=== PATIENT | female | born 1960 | race Caucasian/White ===

== ENCOUNTER → 2021-06-19 11:43 | Outpatient (BNVA) | payer OTHER, SELFPAY | PROVIDERS: Family Provider Nurse Practitioner Family; Visit Provider Nurse Practitioner Family | DX: M17.0 Bilateral primary osteoarthritis of knee (principal); I10 Essential (primary) hypertension; J30.89 Other allergic rhinitis; R05.3 Chronic cough; R06.02 Shortness of breath | CPT/HCPCS: 80053; 80061; 84443; 85025 ==

== ENCOUNTER → 2021-09-27 09:31 | Outpatient (BNVA) | payer OTHER, SELFPAY | PROVIDERS: Family Provider Nurse Practitioner Family; Visit Provider Nurse Practitioner Family | DX: R79.89 Other specified abnormal findings of blood chemistry (principal); I73.9 Peripheral vascular disease, unspecified; M79.89 Other specified soft tissue disorders; I10 Essential (primary) hypertension; J45.909 Unspecified asthma, uncomplicated | CPT/HCPCS: 80053 ==

== ENCOUNTER → 2022-02-12 12:46 | Outpatient (BNVA) | payer SELFPAY | PROVIDERS: Family Provider Nurse Practitioner Family; PCP Nurse Practitioner Family; Visit Provider Dermatology | DX: Z01.89 Encounter for other specified special examinations (principal) ==

== ENCOUNTER 2022-03-20 11:19 | Inpatient (IN) | payer OTHER, SELFPAY ==
[2022-03-20] VITALS (9 sets, daily range): BP systolic 145–180; BP diastolic 59–81; PULSE 86–108; RESP 15–20; TEMP 36.7–37.4; O2SAT 86–98; BMI 62.9
--- NOTE | 2022-03-20 11:59 | ED_ITS ---
Documented by User: VEERNA Santos 03/20/22 15:27 HPI - Skin/Abscess/Foreign Bdy General: Chief complaint: Skin/Abscess/Foreign Body Stated complaint: Infection on the left side of the face. Time Seen by Provider: 03/20/22 11:44 Source: patient Mode of arrival: ambulatory Limitations: no limitations History of Present Illness: Patient is a 61-year-old female presents to ED today along with family for concerns of a facial infection. Patient tells me a few days ago she noticed a pimple to her left nare that she tried to pop. She states since then she has noticed redness and swelling to the left side of her face. She was seen at urgent care and placed on Augmentin. Patient has been on this medication for about 36 hours. Family states over the past 24 hours the redness and swelling has significantly worsened. Patient is not a diabetic or immunocompromised. No history of staph/MRSA. She has not been running fevers. MD complaint: abscess/boil and other (facial cellulitis ) Onset (ago): day(s) Tetanus up to date: yes Location: face Severity: moderate Pain Consistency: constant Relieving factors: none Exacerbating factors: none Associated symptoms: Reports no associated symptoms; Deny chills, fever(s), nausea or vomiting Treatments prior to arrival: antibiotic Review of Systems Const: Denies: fever(s), chills, body aches, fatigue or malaise Eyes: Denies: change in vision, blurry vision or photophobia ENMT: Reports: other (facial swelling/redness); Denies: throat pain, odynophagia, swelling of lips/tongue, oral sores or ear or mastoid pain Card: Denies: chest pain Resp: Denies: dyspnea GI: Denies: abdominal pain, nausea or vomiting Musc: Denies: neck pain, back pain, extremity pain or joint pain Neuro: Denies: headache(s), numbness in extremities, weakness in extremities, sensory changes or dizziness [facility] ED PFSH: Medical History History of asthma Hx of essential hypertension Surgical History Hx of cholecystectomy Hx of hysterectomy Family History Father Hypertension Mother Stroke Social History Smoking and tobacco status: never smoked Second hand smoke exposure: No Smoking risk assessment/counseling performed?: No Alcohol intake: never Desire information about alcohol rehabilitation?: No Counseling given: No Desire information about substance/drug rehabilitation?: No Counseling given: No Adopted: No Caregiver/support person: No Lives independently: Yes Housing: House Number of children: 2 service: No Current occupational status: employed and retired Physical Exam Const: COMMON NORMALS: no acute distress, patient oriented x3, no limitations and alert GENERAL APPEARANCE: cooperative ORIENTATION/CONSCIOUSNESS: Yes awake, Yes oriented to person, Yes oriented to place and Yes oriented to time HENMT: COMMON NORMALS: normocephalic, atraumatic, external ears normal and TM's normal bilaterally HEAD & SCALP: normal to inspection, normocephalic and atraumatic FACE & SINUS: other FACE & SINUS IMAGES: 1. significant erythema/warmth/swelling consistent with cellulitis; no obvious abscess noted EXTERNAL EAR: Yes external ears normal TYMPANIC MEMBRANE: TM's normal bilaterally MOUTH: Normal oral and palatal mucosa present, lip normal and tongue normal THROAT: posterior oropharynx normal, tonsils normal and uvula midline Eye: GENERAL EYE: appearance normal, both eyes and all related structures Neck/C-Spine: COMMON NORMALS: full ROM, no lymphadenopathy and no meningeal signs GENERAL: No anterior neck swelling and No submandibular swelling OTHER: cellulitis extending down onto L side of neck Resp: COMMON NORMALS: normal respiratory effort and clear to auscultation bilaterally AUSCULTATION: clear to auscultation bilaterally Cardio: COMMON NORMALS: regular rhythm RATE: tachycardic (mild) RHYTHM: regular rhythm Neuro: COMMON NORMALS: patient oriented x3 SENSORIUM/ORIENTATION: Yes alert, Yes oriented to person, Yes oriented to place and Yes oriented to time MENINGEAL SIGNS: Yes no meningeal signs Course Consultations: Consultation #1: Dr. Giron-does not recommend any form of drainage as he feels fluid collection most likely more of a phlegmon; recommends IV abx Consultation #2: Dr. Cast-accepts patient Vital Signs: Vital signs: Vital Signs Temperature 98.0 F 03/26/22 08:00 Pulse Rate 96 01/24/23 12:29 Respiratory Rate 18 03/26/22 12:29 Blood Pressure 169/78 03/26/22 08:00 Pulse Oximetry 98 03/26/22 12:29 Oxygen Delivery Me thod 03/26/22 11:20 Fraction of Inspir ed Oxygen 21 03/24/22 20:32 MDM - Skin/Abscess/Foreign Bdy Medicial Decision Making Patient is a nice 61-year-old female here for a significant left-sided facial cellulitis. She has been on Augmentin for approximately 36 hours with no improvement of symptoms. Over the last 24 hours symptoms have significantly worsened. She arrived to the ED mildly tachycardic. She has a white count of 27,000. CRP is significantly elevated at 76.9. Lactate is normal. Patient will require admission for IV antibiotics. Facial CT did show a small fluid collection. This was discussed with ENT Dr. Giron who did not recommend drainage at this time. I have discussed with Dr. Cast who will accept patient. Lab Data 03/20/22 12:10 03/20/22 12:[address] 03/24/22 06:00 IMPRESSION: In comparison with prior exam on 03/20/2022 there is no significant change in size of the abscess anteriorly to the left side of the maxilla, and increased patchy edema in the overlying subcutaneous fat in the left cheek suggestive of worsening phlegmon. There is slight increase in mucosal thickening in the paranasal sinuses with new meniscus of fluid in the right maxillary sinus. Laboratory Results WBC 27.1 10^3/uL (4.0-10.0) H 03/20/22 12:10 RBC 4.40 10^6/uL (4.1-5.3) 03/20/22 12:10 Hgb 12.4 g/dL (11.5-15.3) 03/20/22 12:10 Hct 39.6 % (37.0-47.0) 03/20/22 12:10 MCV 90.0 fl (81-99) 03/20/22 12:10 MCH 28.2 pg (28.0-34.0) 03/20/22 12:10 MCHC 31.3 g/dL (30.0-36.0) 03/20/22 12:10 RDW 15.0 % (12.1-15.1) 03/20/22 12:10 Plt Count 296 10^3/cmm (130-400) 03/20/22 12:10 MPV 11.9 fL (7.4-10.4) H 03/20/22 12:10 Neut % (Auto) 81.6 % 03/20/22 12:10 Lymph % (Auto) 8.1 % 03/20/22 12:10 [place] % (Auto) 6.0 % 03/20/22 12:10 Eos % (Auto) 0.6 % 03/20/22 12:10 Baso % (Auto) 0.6 % 03/20/22 12:10 Neut # (Auto) 22.15 10^3/uL (1.8-7.7) H 03/20/22 12:10 Lymph # (Auto) 2.2 10^3/uL (0.8-4.8) 03/20/22 12:10 [place] # (Auto) 1.6 10^3/uL (0.2-0.9) H 03/20/22 12:10 Eos # (Auto) 0.2 10^3/uL (0.0-0.8) 03/20/22 12:10 Baso # (Auto) 0.2 10^3/uL (0.0-0.1) H 03/20/22 12:10 Nucleated RBC % (auto) 0 % 03/20/22 12:10 Nucleated RBCs # 0.0 /100WBC 03/20/22 12:10 Sodium 137 mmol/L (136-145) 03/20/22 12:10 Potassium 4.4 mmol/L (3.5-5.1) 03/20/22 12:10 Chloride 102 mmol/L (98-107) 03/20/22 12:10 Carbon Dioxide 25 mmol/L (22-29) 03/20/22 12:10 Anion Gap 14.4 (5-19) 03/20/22 12:10 BUN 24 mg/dL (8-23) H 03/20/22 12:10 Creatinine 1.1 mg/dL (0.5-0.9) H 03/20/22 12:10 GFR Calculation 50.2 mL/min (90-130) L 03/20/22 12:10 Glucose 142 mg/dL (65-115) H 03/20/22 12:10 Calculated Osmolality 290 mOsm/kg (285-295) 03/20/22 12:10 Lactic Acid 1.2 mmol/L (0.5-2.2) 03/20/22 12:10 Calcium 9.8 mg/dL (8.5-10.5) 03/20/22 12:10 Total Bilirubin 0.5 mg/dL (0.15-1.2) 03/20/22 12:10 AST 23 U/L (0-32) 03/20/22 12:10 ALT 64 U/L (0-33) H 03/20/22 12:10 Alkaline Phosphatase 132 U/L (35-105) H 03/20/22 12:10 C-Reactive Protein 76.9 mg/L (0.0-4.9) H 03/20/22 12:10 Total Protein 7.0 g/dL (6.6-8.7) 03/20/22 12:10 Albumin 3.6 g/dL (3.5-5.2) 03/20/22 12:10 Globulin 3.4 g/dL (1.3-4.6) 03/20/22 12:10 Procalcitonin 0.06 ng/mL (0-0.5) 03/20/22 12:10 Discharge Plan Discharge Patient Disposition: Admitted As Inpatient Admit Provider: Magalie Cast Clinical Impression: Cellulitis of face Condition: Stable Coding Level of Care Code ED [employer] for Chg Fwd Exam Detailed Documented by User: Sukumar Arevalo MD 03/31/22 00:14 HPI - Skin/Abscess/Foreign Bdy General: Chief complaint: Skin/Abscess/Foreign Body Stated complaint: Infection on the left side of the face. Time Seen by Provider: 03/20/22 11:44 PFSH ED PFSH: Medical History History of asthma Hx of essential hypertension Surgical History Hx of cholecystectomy Hx of hysterectomy Family History Father Hypertension Mother Stroke Social History Smoking and tobacco status: never smoked Second hand smoke exposure: No Smoking risk assessment/counseling performed?: No Alcohol intake: never Desire information about alcohol rehabilitation?: No Counseling given: No Desire information about substance/drug rehabilitation?: No Counseling given: No Adopted: No Caregiver/support person: No Lives independently: Yes Housing: House Number of children: 2 service: No Current occupational status: employed and retired Physical Exam HENMT: FACE & SINUS IMAGES: 1. significant erythema/warmth/swelling consistent with cellulitis; no obvious abscess noted Course Vital Signs: Vital signs: Vital Signs Temperature 98.0 F 03/26/22 08:00 Pulse Rate 96 03/26/22 12:29 Respiratory Rate 18 03/26/22 12:29 Blood Pressure 169/78 03/26/22 08:00 Pulse Oximetry 98 03/26/22 12:29 Oxygen Delivery Me thod 03/26/22 11:20 Fraction of Inspir ed Oxygen 03/24/22 20:32 MDM - Skin/Abscess/Foreign Bdy Medicial Decision Making Patient is a nice 61-year-old female here for a significant left-sided facial cellulitis. She has been on Augmentin for approximately 36 hours with no improvement of symptoms. Over the last 24 hours symptoms have significantly worsened. She arrived to the ED mildly tachycardic. She has a white count of 27,000. CRP is significantly elevated at 76.9. Lactate is normal. Patient will require admission for IV antibiotics. Facial CT did show a small fluid collection. This was discussed with ENT Dr. Giron who did not recommend drainage at this time. I have discussed with Dr. Cast who will accept patient. I discussed this case with VERENA Santos. I reviewed documentation, labs, imaging. Sukumar Arevalo MD Emergency Medicine Lab Data 03/20/22 12:10 03/20/22 12:[address] 03/24/22 06:00
--- NOTE | 2022-03-20 12:20 | CTR_ITS ---
PROCEDURE INFORMATION: Exam: CT Maxillofacial With Contrast Exam date and time: 03/20/2022 1:20 PM Age: 61 years old Clinical indication: Other: Swelling; Additional info: L facial swelling/cellulitis PT states it started as a pimple. TECHNIQUE: Imaging protocol: Computed tomography of the face with contrast. Radiation optimization: All CT scans at this facility use at least one of these dose optimization techniques: automated exposure control; mA and/or kV adjustment per patient size (includes targeted exams where dose is matched to clinical indication); or iterative reconstruction. Contrast material: OMNI 350; Contrast volume: 100 ml; Contrast route: INTRAVENOUS (IV); COMPARISON: No relevant prior studies available. RADIATION DOSE METRICS: Total DLP (mGy-cm): 611.86 FINDINGS: Orbital cavities: Orbits are normal. Globes are unremarkable. Bones/joints: No acute fracture. Paranasal sinuses: Small air-fluid level is seen in each maxillary sinus with mucous membrane thickening seen in ethmoidal air cells bilaterally. Soft tissues: There is mild soft tissue swelling induration involving the left cheek. Just anterior to the maxilla is a fluid collection measuring 33 x [address]/CT facial bones w con [id number] IMPRESSION: 1. Left cheek soft tissue induration inflammation with a fluid collection seen just anterior to the maxilla on the left. 2. Sinus disease.
[2022-03-20 12:28] LABS: Basophils # 0.2 10^3/uL (0.0-0.1); Basophils % 0.6 %; Eosinophils # 0.2 10^3/uL (0.0-0.8); Eosinophils % 0.6 %; Hematocrit 39.6 % (37.0-47.0); Hemoglobin 12.4 g/dL (11.5-15.3); Lymphocytes # 2.2 10^3/uL (0.8-4.8); Lymphocytes % 8.1 %; Mean Corpuscular HGB Conc 31.3 g/dL (30.0-36.0); Mean Corpuscular Hemoglobin 28.2 pg (28.0-34.0); Mean Platelet Volume 11.9 fL (7.4-10.4); Monocytes # 1.6 10^3/uL (0.2-0.9); Neutrophils # 22.15 10^3/uL (1.8-7.7); Neutrophils % 81.6 %; Nucleated Red Blood Cells % 0 %; Platelet Count 296 10^3/cmm (130-400); White Blood Count 27.1 10^3/uL (4.0-10.0)
[2022-03-20 12:45] LABS: Alanine Aminotransferase 64 U/L (0-33); Albumin Level 3.6 g/dL (3.5-5.2); Alkaline Phosphatase 132 U/L (35-105); Anion Gap 14.4 (5-19); Aspartate Amino Transferase 23 U/L (0-32); Blood Urea Nitrogen 24 mg/dL (8-23); C Reactive Protein 76.9 mg/L (0.0-4.9); Calcium 9.8 mg/dL (8.5-10.5); Carbon Dioxide 25 mmol/L (22-29); Chloride 102 mmol/L (98-107); Globulin 3.4 g/dL (1.3-4.6); Glomerular Filtration Rate 50.2 mL/min (90-130); Glucose 142 mg/dL (65-115); Osmolality Calculated 290 mOsm/kg (285-295); Potassium 4.4 mmol/L (3.5-5.1); Sodium 137 mmol/L (136-145); Total Bilirubin 0.5 mg/dL (0.15-1.2)
[2022-03-20] MEDS: vancomycin 1,000 MG in sodium chloride 0.9% 250 ML 250 MG IV (12:49)
[2022-03-20 12:51] LABS: Lactic Sepsis W/Reflex 1.2 mmol/L (0.5-2.2)
[2022-03-20] MEDS: iohexol 350 mg/mL 500 mL Btl (per mL) IV (13:28)
[2022-03-20] MEDS: ondansetron 2 mg/ML SDV 2 mL 4 MG IVP (14:48)
[2022-03-20] MEDS: fentaNYL 50 mcg/mL INJ 2mL IVP (14:48)
[2022-03-20] MEDS: piperacillin-tazobactam 3.375 GM in sodium chloride 0.9% (plus) 50 ML IV ×2 (15:17→20:48)
--- NOTE | 2022-03-20 15:35 | PM.HP ---
Providers/Chief Complaint Primary Care Provider: QUIANA Aquino Chief Complaint: Infection on the left side of the face. History of Present Illness Rosa Espino is a 61 year old female with past medical history of asthma and hypertension, iron deficiency anemia presented to the hospital today with complaint of swelling on her face. She says a few days ago there was a pimple close to her left nose that she tried to squeeze. After that she noticed redness and swelling to the left side of her face which is gotten worse. She went to get evaluated at urgent care and was given Augmentin and clindamycin. He has taken a few doses of that however due to worsening swelling she decided to come to the hospital. Patient does not have diabetes and is not immunocompromise. Has not had a history of any staph or MRSA infections. Has been afebrile at home. Recently was treated for bronchitis with oral steroids and there after the pimple showed up which she squeezed and then ended up with facial swelling. She does have a white count of 27,000 today. She is on budesonide formoterol inhaler at home. At this time denies any chest pain, shortness of breath, abdominal pain, nausea, vomiting, diarrhea, no Headache ED course: CRP elevated, WBC 27,000, creatinine 1.1. Facial CT was done which shows a 33 mm x 10 mm possible fluid collection by left maxillary area. Case was discussed with ENT surgeon Dr. Chopra over the phone who stated to manage conservatively with IV antibiotics and no surgical intervention is needed at this time. Patient was given a dose of IV vancomycin in the ER. Zosyn has also been added. Patient will be admitted at this time for IV antibiotics. Medications/Allergies Home Medications Medication Instructions Recorded Confirmed Last Taken Type melatonin 10 mg capsule 40 mg PO DAILY 11/23/20 03/20/22 03/19/22 History Saccharomyces boulardii 250 mg 250 mg PO BID 06/19/21 03/20/22 03/19/22 History capsule (Daily Probiotic (S. boulardii)) ascorbic acid (vitamin C) 1,000 mg 500 mg PO DAILY 06/19/21 03/20/22 03/19/22 History tablet coenzyme Q10 200 mg capsule (Co 200 mg PO DAILY 06/19/21 03/20/22 03/19/22 History Q-10) cyanocobalamin (vitamin B-12) 500 500 mcg PO DAILY 06/19/21 03/20/22 03/19/22 History mcg tablet (Vitamin B-12) ferrous sulfate 27 mg iron tablet 27 mg PO DAILY 06/19/21 03/20/22 03/19/22 History glucosamine sulfate 500 mg tablet 500 mg PO DAILY 06/19/21 03/20/22 03/19/22 History (Glucosamine) omega 4-qeo-mng-fish oil 60 mg-90 1 cap PO DAILY 06/19/21 03/20/22 03/19/22 History mg-500 mg capsule (Fish Oil) albuterol sulfate 90 mcg/actuation 2 puff inhalation QID PRN 01/01/22 03/20/22 03/20/22 Rx aerosol inhaler (ProAir HFA) shortness of breath or wheezing #6.7 grams montelukast 10 mg tablet 10 mg PO DAILY #30 tabs 01/01/22 03/20/22 03/19/22 Rx olmesartan 40 mg tablet 40 mg PO DAILY #30 tabs 01/01/22 03/20/22 03/19/22 Rx triamterene 37.5 1 tab PO DAILY #30 tabs 01/01/22 03/20/22 03/19/22 Rx mg-hydrochlorothiazide 25 mg tablet budesonide-formoterol HFA 160 2 puff inhalation BID #10.2 grams 01/02/22 03/20/22 03/19/22 Rx mcg-4.5 mcg/actuation aerosol inhaler (Symbicort) amoxicillin 875 mg-potassium 1 tab PO BID 03/20/22 03/20/22 03/19/22 History clavulanate 125 mg tablet benzonatate 100 mg capsule 100 mg PO TID 03/20/22 03/20/22 03/19/22 History clindamycin HCl 300 mg capsule 300 mg PO TID #30 caps 03/20/22 03/20/22 Unknown Rx latanoprost 0.005 % eye drops 1 drp ophthalmic (eye) BEDTIME 03/20/22 03/20/22 03/19/22 History triamcinolone acetonide 0.1 % 1 applic topical BID 03/20/22 03/20/22 03/19/22 History topical cream zinc acetate 50 mg (zinc) capsule 50 mg PO DAILY 03/20/22 03/20/22 03/19/22 History Allergies Allergy/AdvReac Type Severity Reaction Status Date / Time codeine Allergy ADR-Nausea Verified 03/20/22 15:43 morphine Allergy ADR-Nausea Verified 03/20/22 15:43 PFSH Acute PFSH: Medical History History of asthma Hx of essential hypertension Surgical History Hx of cholecystectomy Hx of hysterectomy Family History Father Hypertension Mother Stroke Social History Smoking and tobacco status: never smoked Second hand smoke exposure: No Smoking risk assessment/counseling performed?: No Alcohol intake: never Desire information about alcohol rehabilitation?: No Counseling given: No Desire information about substance/drug rehabilitation?: No Counseling given: No Adopted: No Caregiver/support person: No Lives independently: Yes Housing: House Number of children: 2 service: No Current occupational status: employed and retired Vitals/I&O/Wt Last Vital Signs Temp 98.0 F 03/20/22 14:11 Pulse 86 03/20/22 15:00 Resp 19 H 03/20/22 15:00 BP 149/59 03/20/22 15:00 Pulse Ox 86 L 03/20/22 15:00 O2 Del Method 03/20/22 14:11 03/20/22 03/20/22 03/20/22 06:59 14:59 22:59 Intake Total 250 / 250 Balance 250 / 250 Weight last 48 hrs Weight 166.468 kg Physical Exam Narrative: General: Alert oriented x3, patient seen sitting up in bed appearing comfortable at this time no acute respiratory distress. HEENT: Normocephalic, atraumatic, EOMI, Cardio: Regular rate rhythm, normal S1-S2 no gross murmurs Respiratory: Clear to auscultation bilaterally no wheezes no rhonchi GI: Abdomen soft, nontender, nondistended, bowel sounds + Extremities: No edema, visible skin intact. Data 03/20/22 12:10 03/20/22 12:10 Micro: Microbiology 03/20/22 12:31 Blood Culture - Preliminary Blood SPECIMEN COLLECTED 03/20/22 12:30 Blood Culture - Preliminary Blood SPECIMEN COLLECTED A&P Assessment and plan (1) Cellulitis of face: (2) KENNY (acute kidney injury): (3) Hypertension: (4) Asthma: (5) Abscess: Plan #Cellulitis of left side of face with underlying fluid collection small abscess #Hypertension #History of asthma #KENNY ? Continue on vancomycin and Zosyn at this time ? Continue IV fluids normal saline 125 cc/h ? DuoNeb every 4 hour as needed ? Continue home medication benzonatate for cough, Singulair, olmesartan. -Leukocytosis and KENNY most likely secondary to current infection. Hopefully should improve with IV fluids. ? Check blood cultures ? If there is no improvement within 48 hours of IV antibiotics will discuss with surgery for possible drainage of fluid collection - Tylenol 1000 mg Q8H for pain PRn Full code DVT prophylaxis: Heparin SQ twice daily Attestations Medical Necessity Statement*: Will cross greater than 2 midnight stay for management of facial cellulitis underlying abscess with IV antibiotics at this time. Coding Level of Care Code Acute Code for [facility] Diagnoses Cellulitis of face L03.211 KENNY (acute kidney injury) N17.9 Hypertension I10 Asthma J45.909 Abscess L02.91
[2022-03-20 16:29] LABS: Procalcitonin 0.06 ng/mL (0-0.5)
[2022-03-20] MEDS: sodium chloride 0.9% 1,000 ML 125 ML IV (16:35)
[2022-03-20] MEDS: heparin 5,000 unit/mL INJ 1 mL 5000 UNIT SUBCUT (16:36)
[2022-03-20] MEDS: acetaminophen 325 mg Tablet 650 MG PO (16:39)
[2022-03-20] MEDS: fentaNYL 50 mcg/mL INJ 2mL 25 MCG IVP (18:45)
--- NOTE | 2022-03-20 19:52 | PC.NURSE ---
ADMIT NOTE Pt received to room from ER at 1930. Is alert and oriented. Family with pt. Has redness/swelling to left side of face. Is tender to touch. Says started with a zit in her left nare that she popped 3 days ago. Started with swelling & redness and was treated as OP without response. Received IV antibiotics in the ER. IV fluids started at 125ml/hr and waiting for pharmacy to verify the SoluMedrol so can be given. Pt instructed to call for any difficulty with swallowing or breathing. Does say she has had a cold with productive cough. History of COPD. VS done and oriented to room. Call light in reach. RN to complete admission assessment
[2022-03-20] MEDS: benzonatate 100 mg Capsule PO (20:47)
[2022-03-20] MEDS: latanoprost 0.005% Op Soln 2.5 mL Btl 1 DROP EYE-BOTH (20:48)
[2022-03-20] MEDS: ipratropium-albuterol 3 mL Neb INHALATION (22:27)
[2022-03-21] VITALS (16 sets, daily range): BP systolic 116–173; BP diastolic 62–85; PULSE 87–110; RESP 16–23; TEMP 36.5–36.9; O2SAT 91–99
[2022-03-21] MEDS: acetaminophen 500 mg Tablet 1000 MG PO ×2 (00:25→19:51)
[2022-03-21] MEDS: sodium chloride 0.9% 1,000 ML 125 ML IV ×3 (03:30→23:52)
[2022-03-21] MEDS: heparin 5,000 unit/mL INJ 1 mL 5000 UNIT SUBCUT ×2 (04:16→17:14)
[2022-03-21] MEDS: piperacillin-tazobactam 3.375 GM in sodium chloride 0.9% (plus) 50 ML IV ×3 (04:17→20:26)
[2022-03-21 04:51] LABS: Basophils # 0.1 10^3/uL (0.0-0.1); Basophils % 0.4 %; Hematocrit 39.6 % (37.0-47.0); Hemoglobin 12.1 g/dL (11.5-15.3); Lymphocytes % 3.7 %; Mean Corpuscular HGB Conc 30.6 g/dL (30.0-36.0); Mean Corpuscular Hemoglobin 27.9 pg (28.0-34.0); Mean Corpuscular Volume 91.2 fl (81-99); Monocytes # 0.5 10^3/uL (0.2-0.9); Monocytes % 1.6 %; Neutrophils # 25.18 10^3/uL (1.8-7.7); Neutrophils % 91.5 %; Nucleated Red Blood Cells % 0 %; Platelet Count 285 10^3/cmm (130-400); Red Blood Count 4.34 10^6/uL (4.1-5.3); Red Cell Distribution Width 14.8 % (12.1-15.1); White Blood Count 27.5 10^3/uL (4.0-10.0)
[2022-03-21] MEDS: vancomycin 1,500 MG/300 ML PIGGYBACK 200 MG IV (05:19)
[2022-03-21 05:29] LABS: Anion Gap 15.2 (5-19); Blood Urea Nitrogen 21 mg/dL (8-23); Calcium 9.5 mg/dL (8.5-10.5); Carbon Dioxide 24 mmol/L (22-29); Chloride 104 mmol/L (98-107); Glomerular Filtration Rate 50.2 mL/min (90-130); Glucose 179 mg/dL (65-115); Osmolality Calculated 293 mOsm/kg (285-295); Potassium 5.2 mmol/L (3.5-5.1); Sodium 138 mmol/L (136-145)
--- NOTE | 2022-03-21 07:44 | PM.PN ---
Subjective Subjective: CRP 111 WBC 27 Patient reportedly feeling better, swelling decreased a bit Breathing better as well Vitals/I&O/Wt Last Vital Signs Temp 97.9 F 03/21/22 04:22 Pulse 94 03/21/22 04:22 Resp 21 H 03/21/22 04:22 BP 147/77 03/21/22 04:22 Pulse Ox 94 03/21/22 04:22 O2 Del Method 03/21/22 03:37 03/20/22 03/21/22 03/21/22 22:59 06:59 14:59 Intake Total 300 / 300 1290 / 1590 Output Total Balance 299 / 299 1290 / 1589 Weight last 48 hrs Weight 166.468 kg Physical Exam Narrative: General: Alert oriented x3, patient seen sitting up in bed appearing comfortable at this time no acute respiratory distress. HEENT: Normocephalic, atraumatic, EOMI, Cardio: Regular rate rhythm, normal S1-S2 no gross murmurs Respiratory: Clear to auscultation bilaterally no wheezes no rhonchi GI: Abdomen soft, nontender, nondistended, bowel sounds + Extremities: No edema, visible skin intact. Data 03/21/22 04:12 03/21/22 04:12 Micro: Microbiology 03/20/22 12:31 Blood Culture - Preliminary Blood SPECIMEN COLLECTED 03/20/22 12:30 Blood Culture - Preliminary Blood SPECIMEN COLLECTED A&P Assessment and plan (1) Cellulitis of face: (2) KENNY (acute kidney injury): (3) Hypertension: (4) Asthma: (5) Abscess: Plan #Cellulitis of left side of face with underlying fluid collection small abscess #Hypertension #History of asthma #KENNY #COPD exacerbation ? Continue on vancomycin and Zosyn at this time ? Continue IV fluids normal saline 125 cc/h ? DuoNeb every 4 hour as needed ? Continue home medication benzonatate for cough, Singulair, olmesartan. -Leukocytosis and KENNY most likely secondary to current infection. Hopefully should improve with IV fluids. ? Check blood cultures ? Continue inpatient IV Antibiotics for atleast 4-5 days. - Tylenol 1000 mg Q8H for pain PRn - Potassium 5.2 today. Will order kayexalate x1 - Doc-senna 1 bid - Discussed with ID. Patient will need 14 days IV abx total, most likely vancomycin. Will decide on coverage in few days. - Check MRSA nares - Continue solumedrol 40 q12 hr Full code DVT prophylaxis: Heparin SQ twice daily Attestations Medical Necessity Statement*: Will cross greater than 2 midnight stay for management of facial cellulitis underlying abscess with IV antibiotics at this time. Coding Level of Care Code Acute Code for g Fwd Diagnoses Cellulitis of face L03.211 KENNY (acute kidney injury) N17.9 Hypertension I10 Asthma J45.909 Abscess L02.91
[2022-03-21] MEDS: ipratropium-albuterol 3 mL Neb INHALATION ×4 (08:31→21:09)
[2022-03-21] MEDS: benzonatate 100 mg Capsule PO ×3 (08:51→20:26)
[2022-03-21] MEDS: montelukast sodium 10 mg Tablet PO (08:51)
--- NOTE | 2022-03-21 10:53 | PC.CHAP ---
Pastoral Care Encounter/Spiritual Assessment Type of Contact [] Declined instructor ballroom dancing visit [] Patient/Family/Request visit [] Outpatient visit [] Follow-up visit [] Physician referral [] Code/Alert [x] Routine visit [] Staff referral [] Actively dying [] Patient sleeping [] Family support [] [] Out of room [] Palliative care [] [x] Receiving care in room [] Pre-surgical visit [] Trauma [] Long length of stay [] ICU visit [] Other: Relational/Emotional Strength [x] Patient feels connected with others/family/visitors/staff [] Distress [] Loneliness/isolation [] Abandonment Spirituality of Patient [x] Person of Deandra [] Attends Jew of their Deandra [x] Believes in Prayer [] Reads Bible or Pentecostalism materials [] There are Spiritual issues to be addressed Ware[employer] Interventions [x] Prayer [x] Active listening [x] Non-anxious presence [x] Spiritual/emotional support [] Crisis/trauma care [x] Spiritual counseling [] Bereavement support [] Provided bereavement packet [] Provided Bible/devotional materials [] Provided toy/stuffed animal, coloring book to patient or family member [] Provided Communion [] Anointing/[place] [] Salvation [x] Completed spiritual assessment [] Other: Impact on Illness or Injury [] Angry [] Fearful [] Anxious [] Often cries [] Exhaustion [] Unable to work [] Unable to attend cheondoism [] Unable to walk/stand [] Unable to read [] Unable to drive [] Unable to eat/drink [] Unable to sleep [] Unable to be with family [] Patient intubated [] Other: Summary absee zit feeling better +1 has a good attitude going home Time spent with patient 10 mins
[2022-03-21] MEDS: sodium polystyrene sulfonate 15 gm/60 mL Btl PO (13:13)
[2022-03-21] MEDS: sennosides-docusate Tablet 1 TAB PO (17:14)
[2022-03-21] MEDS: losartan 50 mg Tablet PO (20:23)
[2022-03-21] MEDS: latanoprost 0.005% Op Soln 2.5 mL Btl 1 DROP EYE-BOTH (20:26)
[2022-03-22] VITALS (15 sets, daily range): BP systolic 136–198; BP diastolic 68–93; PULSE 82–105; RESP 16–20; TEMP 36.4–37; O2SAT 93–98
[2022-03-22] MEDS: piperacillin-tazobactam 3.375 GM in sodium chloride 0.9% (plus) 50 ML IV ×3 (04:11→21:53)
[2022-03-22] MEDS: heparin 5,000 unit/mL INJ 1 mL 5000 UNIT SUBCUT ×2 (04:11→16:52)
[2022-03-22 05:58] LABS: Basophils # 0.1 10^3/uL (0.0-0.1); Basophils % 0.3 %; Hematocrit 38.5 % (37.0-47.0); Lymphocytes # 1.4 10^3/uL (0.8-4.8); Lymphocytes % 4.4 %; Mean Corpuscular HGB Conc 31.2 g/dL (30.0-36.0); Mean Corpuscular Hemoglobin 28.6 pg (28.0-34.0); Mean Corpuscular Volume 91.7 fl (81-99); Mean Platelet Volume 12.1 fL (7.4-10.4); Monocytes # 1.1 10^3/uL (0.2-0.9); Monocytes % 3.5 %; Neutrophils # 27.67 10^3/uL (1.8-7.7); Neutrophils % 88.8 %; Nucleated Red Blood Cells % 0 %; Platelet Count 290 10^3/cmm (130-400); Red Cell Distribution Width 15.2 % (12.1-15.1)
[2022-03-22 06:02] LABS: White Blood Count 31.2 10^3/uL (4.0-10.0)
[2022-03-22] MEDS: vancomycin 1,500 MG/300 ML PIGGYBACK 200 MG IV (06:05)
[2022-03-22 06:18] LABS: C Reactive Protein 86.6 mg/L (0.0-4.9)
[2022-03-22 06:22] LABS: Anion Gap 15.8 (5-19); Blood Urea Nitrogen 24 mg/dL (8-23); Calcium 8.8 mg/dL (8.5-10.5); Carbon Dioxide 22 mmol/L (22-29); Chloride 104 mmol/L (98-107); Glucose 152 mg/dL (65-115); Osmolality Calculated 291 mOsm/kg (285-295); Potassium 4.8 mmol/L (3.5-5.1); Sodium 137 mmol/L (136-145)
[2022-03-22] MEDS: sodium chloride 0.9% 1,000 ML 125 ML IV ×2 (07:34→16:52)
[2022-03-22] MEDS: ipratropium-albuterol 3 mL Neb INHALATION ×4 (08:11→19:03)
[2022-03-22] MEDS: montelukast sodium 10 mg Tablet PO (09:44)
[2022-03-22] MEDS: benzonatate 100 mg Capsule PO ×3 (09:44→21:52)
[2022-03-22] MEDS: TRIAMTERENE HYDROCHLOROTHIAZID 1 EACH PO (11:23)
--- NOTE | 2022-03-22 17:36 | P.PN_ITS ---
Subjective Subjective: Seen this morning. No acute events overnight. Facial swelling has decreased. Has not completely resolved yet however. Vitals/I&O/Wt Last Vital Signs Temp 98.1 F 03/22/22 12:00 Pulse 91 03/22/22 15:28 Resp 18 03/22/22 15:24 BP 136/68 03/22/22 12:00 Pulse Ox 94 03/22/22 15:24 O2 Del Method 03/22/22 15:24 03/22/22 03/22/22 03/22/22 06:59 14:59 22:59 Intake Total 300 / 3960 2552.5 / 2552.5 1000 / 3552.5 Balance 300 / 3960 2552.5 / 2552.5 1000 / 3552.5 Physical Exam Narrative: General: Alert oriented x3, patient seen sitting up in bed appearing comfortable at this time no acute respiratory distress. HEENT: Normocephalic, atraumatic, EOMI, facial swelling has decreased significantly however not resolved yet. Cardio: Regular rate rhythm, normal S1-S2 no gross murmurs Respiratory: Clear to auscultation bilaterally no wheezes no rhonchi GI: Abdomen soft, nontender, nondistended, bowel sounds + Extremities: No edema, visible skin intact. Data 03/22/22 05:19 03/22/22 05:19 Micro: Microbiology 03/21/22 13:20 MRSA Culture - Final Nose 03/20/22 12:31 Blood Culture - Preliminary Blood NEGATIVE TO DATE 03/20/22 12:30 Blood Culture - Preliminary Blood NEGATIVE TO DATE A&P Assessment and plan (1) Cellulitis of face: (2) KENNY (acute kidney injury): (3) Hypertension: (4) Asthma: (5) Abscess: Plan #Cellulitis of left side of face with underlying fluid collection small abscess #Hypertension #History of asthma #KENNY #COPD exacerbation ? Continue on vancomycin and Zosyn at this time ? Continue IV fluids normal saline 125 cc/h ? DuoNeb every 4 hour as needed ? Continue home medication benzonatate for cough, Singulair, olmesartan. -Leukocytosis and KENNY most likely secondary to current infection. Hopefully should improve with IV fluids. ? Check blood cultures ? Continue inpatient IV Antibiotics for atleast 4-5 days. - Tylenol 1000 mg Q8H for pain PRn - Potassium 5.2 today. Will order kayexalate x1 - Doc-senna 1 bid - Discussed with ID. Patient will need 14 days IV abx total, most likely vancomycin. Will decide on coverage in few days. - Check MRSA nares -Cut down Solu-Medrol to 40 daily. Full code DVT prophylaxis: Heparin SQ twice daily Attestations Medical Necessity Statement*: Will cross greater than 2 midnight stay for management of facial cellulitis underlying abscess with IV antibiotics at this time. Coding Level of Care Code Acute Code for [facility] Diagnoses Cellulitis of face L03.211 KENNY (acute kidney injury) N17.9 Hypertension I10 Asthma J45.909 Abscess L02.91
[2022-03-22] MEDS: losartan 50 mg Tablet PO (21:52)
[2022-03-22] MEDS: latanoprost 0.005% Op Soln 2.5 mL Btl 1 DROP EYE-BOTH (21:52)
[2022-03-23] VITALS (15 sets, daily range): BP systolic 125–188; BP diastolic 75–96; PULSE 84–101; RESP 16–23; TEMP 36.4–37; O2SAT 93–98
[2022-03-23] MEDS: sodium chloride 0.9% 1,000 ML 125 ML IV ×3 (00:58→16:52)
[2022-03-23] MEDS: acetaminophen 500 mg Tablet 1000 MG PO ×2 (00:58→23:31)
[2022-03-23] MEDS: heparin 5,000 unit/mL INJ 1 mL 5000 UNIT SUBCUT ×2 (05:08→16:52)
[2022-03-23] MEDS: piperacillin-tazobactam 3.375 GM in sodium chloride 0.9% (plus) 50 ML IV ×3 (05:11→21:30)
[2022-03-23 05:29] LABS: Basophils # 0.1 10^3/uL (0.0-0.1); Basophils % 0.3 %; Eosinophils % 0.1 %; Hematocrit 38.9 % (37.0-47.0); Hemoglobin 11.8 g/dL (11.5-15.3); Lymphocytes # 3.1 10^3/uL (0.8-4.8); Lymphocytes % 11.3 %; Mean Corpuscular HGB Conc 30.3 g/dL (30.0-36.0); Mean Corpuscular Hemoglobin 28.4 pg (28.0-34.0); Mean Corpuscular Volume 93.5 fl (81-99); Mean Platelet Volume 11.7 fL (7.4-10.4); Monocytes # 1.3 10^3/uL (0.2-0.9); Monocytes % 4.6 %; Neutrophils # 22.29 10^3/uL (1.8-7.7); Neutrophils % 80.7 %; Nucleated Red Blood Cells % 0 %; Platelet Count 325 10^3/cmm (130-400); Red Blood Count 4.16 10^6/uL (4.1-5.3); Red Cell Distribution Width 15.5 % (12.1-15.1); White Blood Count 27.6 10^3/uL (4.0-10.0)
[2022-03-23] MEDS: ipratropium-albuterol 3 mL Neb INHALATION ×4 (08:20→21:06)
[2022-03-23] MEDS: TRIAMTERENE HYDROCHLOROTHIAZID 1 EACH PO (08:54)
[2022-03-23] MEDS: benzonatate 100 mg Capsule PO ×3 (08:54→20:02)
[2022-03-23] MEDS: sennosides-docusate Tablet 1 TAB PO ×2 (08:54→16:52)
[2022-03-23] MEDS: montelukast sodium 10 mg Tablet PO (08:54)
[2022-03-23] MEDS: vancomycin 1,250 MG/250 ML PIGGYBACK 240 MG IV ×2 (09:05→20:02)
--- NOTE | 2022-03-23 14:32 | P.PN_ITS ---
Subjective Subjective: Seen and examined. Feeling better. WBC count 27,000. Vitals/I&O/Wt Last Vital Signs Temp 97.9 F 03/23/22 12:00 Pulse 86 03/23/22 12:11 Resp 17 03/23/22 12:03 BP 155/79 03/23/22 12:00 Pulse Ox 97 03/23/22 12:03 O2 Del Method 03/23/22 12:03 03/22/22 03/23/22 03/23/22 22:59 06:59 14:59 Intake Total 1650 / 4202.5 1450 / 5652.5 1890.417 / 1890.417 Balance 1650 / 4202.5 1450 / 5652.5 1890.417 / 1890.417 Physical Exam Narrative: General: Alert oriented x3, patient seen sitting up in bed appearing comfortable at this time no acute respiratory distress. HEENT: Normocephalic, atraumatic, EOMI, facial swelling has decreased significantly however not resolved yet. Cardio: Regular rate rhythm, normal S1-S2 no gross murmurs Respiratory: Clear to auscultation bilaterally no wheezes no rhonchi GI: Abdomen soft, nontender, nondistended, bowel sounds + Extremities: No edema, visible skin intact. Data 03/23/22 05:07 03/22/22 05:19 Micro: Microbiology 03/21/22 13:20 MRSA Culture - Final Nose A&P Assessment and plan (1) Cellulitis of face: (2) KENNY (acute kidney injury): (3) Hypertension: (4) Asthma: (5) Abscess: Plan #Cellulitis of left side of face with underlying fluid collection small abscess #Hypertension #History of asthma #KENNY #COPD exacerbation ? Continue on vancomycin and Zosyn at this time ? Stop IV fluids ? DuoNeb every 4 hour as needed ? Continue home medication benzonatate for cough, Singulair, olmesartan. -Leukocytosis and KENNY most likely secondary to current infection ? BCx NTD ? Continue inpatient IV Antibiotics for atleast 4-5 days. - Tylenol 1000 mg Q8H for pain PRn - Potassium 5.2 03/22. Will order kayexalate x1. Recheck BMP today. lab pending - Doc-senna 1 bid - Discussed with ID. Patient will need 14 days IV abx total, most likely vancomycin. Will decide on coverage in few days. - MRSA nares negative -Cut down Solu-Medrol to 40 daily. - Repeat CT face in AM Full code DVT prophylaxis: Heparin SQ twice daily Attestations Medical Necessity Statement*: Will cross greater than 2 midnight stay for management of facial cellulitis underlying abscess with IV antibiotics at this time. Coding Level of Care Code Acute Code for [facility] Diagnoses Cellulitis of face L03.211 KENNY (acute kidney injury) N17.9 Hypertension I10 Asthma J45.909 Abscess L02.91
[2022-03-23 16:57] LABS: Blood Urea Nitrogen 24 mg/dL (8-23); Carbon Dioxide 23 mmol/L (22-29); Chloride 103 mmol/L (98-107); Glomerular Filtration Rate 50.2 mL/min (90-130); Glucose 153 mg/dL (65-115); Osmolality Calculated 291 mOsm/kg (285-295); Sodium 137 mmol/L (136-145)
[2022-03-23] MEDS: losartan 50 mg Tablet PO (20:02)
[2022-03-23] MEDS: latanoprost 0.005% Op Soln 2.5 mL Btl 1 DROP EYE-BOTH (20:03)
[2022-03-24] VITALS (11 sets, daily range): BP systolic 136–180; BP diastolic 77–98; PULSE 76–92; RESP 16–20; TEMP 36.4–36.7; O2SAT 94–97
[2022-03-24] MEDS: sodium chloride 0.9% 1,000 ML 125 ML IV ×2 (01:28→07:45)
[2022-03-24 03:56] LABS: Basophils # 0.1 10^3/uL (0.0-0.1); Basophils % 0.3 %; Eosinophils % 0.1 %; Hematocrit 36.7 % (37.0-47.0); Hemoglobin 11.1 g/dL (11.5-15.3); Lymphocytes # 2.7 10^3/uL (0.8-4.8); Lymphocytes % 13.3 %; Mean Corpuscular HGB Conc 30.2 g/dL (30.0-36.0); Mean Corpuscular Volume 92.4 fl (81-99); Mean Platelet Volume 11.9 fL (7.4-10.4); Monocytes # 1.2 10^3/uL (0.2-0.9); Monocytes % 5.9 %; Neutrophils # 15.71 10^3/uL (1.8-7.7); Neutrophils % 76.6 %; Nucleated Red Blood Cells % 0 %; Platelet Count 293 10^3/cmm (130-400); Red Blood Count 3.97 10^6/uL (4.1-5.3); Red Cell Distribution Width 15.4 % (12.1-15.1); White Blood Count 20.5 10^3/uL (4.0-10.0)
[2022-03-24 04:21] LABS: Anion Gap 14.1 (5-19); Blood Urea Nitrogen 26 mg/dL (8-23); C Reactive Protein 23.1 mg/L (0.0-4.9); Calcium 9.1 mg/dL (8.5-10.5); Carbon Dioxide 24 mmol/L (22-29); Chloride 106 mmol/L (98-107); Glomerular Filtration Rate 50.2 mL/min (90-130); Glucose 146 mg/dL (65-115); Osmolality Calculated 295 mOsm/kg (285-295); Potassium 5.1 mmol/L (3.5-5.1); Sodium 139 mmol/L (136-145)
[2022-03-24] MEDS: piperacillin-tazobactam 3.375 GM in sodium chloride 0.9% (plus) 50 ML IV ×3 (05:54→23:47)
[2022-03-24] MEDS: heparin 5,000 unit/mL INJ 1 mL 5000 UNIT SUBCUT ×2 (05:54→17:37)
--- NOTE | 2022-03-24 06:00 | CTR_ITS ---
PROCEDURE INFORMATION: Exam: CT Maxillofacial With Contrast Exam date and time: 03/24/2022 8:25 AM Age: 61 years old Clinical indication: Mass, lump, or swelling; Maxilla; Additional info: Eval fluid collection by maxilla TECHNIQUE: Imaging protocol: Computed tomography of the face with contrast. Radiation optimization: All CT scans at this facility use at least one of these dose optimization techniques: automated exposure control; mA and/or kV adjustment per patient size (includes targeted exams where dose is matched to clinical indication); or iterative reconstruction. Contrast material: OMNI 350; Contrast volume: 100 ml; Contrast route: INTRAVENOUS (IV); COMPARISON: CT facial bones w con [id number] 03/20/2022 1:20 PM RADIATION DOSE METRICS: Total DLP (mGy-cm): 652.4 FINDINGS: Orbital cavities: Orbits are normal. Globes are unremarkable. Bones/joints: No suspicious lytic or sclerotic bone lesions. Paranasal sinuses: There is persistent mild mucosal thickening in bilateral maxillary and ethmoid sinuses slightly increased since prior exam within the right maxillary sinus with new meniscus of fluid, and new mild mucosal thickening in the sphenoid sinus. Soft tissues: Peripherally enhancing fluid collection anteriorly to the left side of the maxilla persists since prior exam measuring about 3.5 x 1.2 cm. In comparison with prior exam there is progressive patchy edema in the subcutaneous fat in the medial aspect of the left cheek adjacent to the abscess as seen on series 14 image 66-71. CT/CT facial bones w con [id number] IMPRESSION: In comparison with prior exam on 03/20/2022 there is no significant change in size of the abscess anteriorly to the left side of the maxilla, and increased patchy edema in the overlying subcutaneous fat in the left cheek suggestive of worsening phlegmon. There is slight increase in mucosal thickening in the paranasal sinuses with new meniscus of fluid in the right maxillary sinus.
[2022-03-24] MEDS: benzonatate 100 mg Capsule PO ×3 (07:44→20:05)
[2022-03-24] MEDS: vancomycin 1,250 MG/250 ML PIGGYBACK 240 MG IV ×2 (07:44→21:59)
[2022-03-24] MEDS: montelukast sodium 10 mg Tablet PO (07:44)
[2022-03-24] MEDS: sennosides-docusate Tablet 1 TAB PO ×2 (07:44→17:38)
[2022-03-24] MEDS: TRIAMTERENE HYDROCHLOROTHIAZID 1 EACH PO (07:46)
[2022-03-24] MEDS: iohexol 350 mg/mL 500 mL Btl (per mL) IV (08:32)
[2022-03-24] MEDS: ipratropium-albuterol 3 mL Neb INHALATION ×3 (11:52→20:30)
--- NOTE | 2022-03-24 12:17 | P.PN_ITS ---
Subjective Subjective: seen this am crp decreased, wbc starting to come down however on imaging size of abscess has increased swelling on face still present. pt overall feels better compared to admission but still in discomfort and complains of pain at the cheek area. Vitals/I&O/Wt Last Vital Signs Temp 97.7 F 03/24/22 12:00 Pulse 79 03/24/22 12:00 Resp 18 03/24/22 12:00 BP 177/94 03/24/22 12:00 Pulse Ox 95 03/24/22 12:00 O2 Del Method 03/24/22 12:00 03/23/22 03/24/22 03/24/22 22:59 06:59 14:59 Intake Total 1533.75 / 3424.167 1050 / 4474.167 1288.334 / 1288.334 Balance 1533.75 / 3424.167 1050 / 4474.167 1288.334 / 1288.334 Physical Exam Narrative: General: Alert oriented x3, patient seen sitting up in bed appearing comfortable at this time no acute respiratory distress. HEENT: Normocephalic, atraumatic, EOMI, facial swelling has decreased significantly however not resolved yet. now complains of pain, mildly tender Cardio: Regular rate rhythm, normal S1-S2 no gross murmurs Respiratory: Clear to auscultation bilaterally no wheezes no rhonchi GI: Abdomen soft, nontender, nondistended, bowel sounds + Extremities: No edema, visible skin intact. Data 03/24/22 02:42 03/24/22 02:42 A&P Assessment and plan (1) Cellulitis of face: (2) KENNY (acute kidney injury): (3) Hypertension: (4) Asthma: (5) Abscess: Plan #Cellulitis of left side of face with underlying fluid collection small abscess #Hypertension #History of asthma #KENNY #COPD exacerbation ? Continue on vancomycin and Zosyn at this time ? Stop IV fluids ? DuoNeb every 4 hour as needed ? Continue home medication benzonatate for cough, Singulair, olmesartan. -Leukocytosis and KENNY most likely secondary to current infection ? BCx NTD ? Continue inpatient IV Antibiotics for atleast 4-5 days. - Tylenol 1000 mg Q8H for pain PRn - Potassium 5.1 03/23. kayexalate given yesterday - Doc-senna 1 bid - Discussed with ID. Patient will need 14 days IV abx total, most likely vancomycin. Will decide on coverage in few days. - MRSA nares negative -Cut down Solu-Medrol to 20 daily. - Repeat CT face AM shows: n comparison with prior exam on 03/20/2022 there is no significant change in size of the abscess anteriorly to the left side of the maxilla, and increased patchy edema in the overlying subcutaneous fat in the left cheek suggestive of worsening phlegmon. There is slight increase in mucosal thickening in the paranasal sinuses with new meniscus of fluid in the right maxillary sinus. - Will consult ENT. Left Dr. Neal a voicemail. Full code DVT prophylaxis: Heparin SQ twice daily Attestations Medical Necessity Statement*: Will cross greater than 2 midnight stay for management of facial cellulitis underlying abscess with IV antibiotics at this time. Coding Level of Care Code [facility] Diagnoses Cellulitis of face L03.211 KENNY (acute kidney injury) N17.9 Hypertension I10 Asthma J45.909 Abscess L02.91
[2022-03-24] MEDS: losartan 50 mg Tablet PO (20:05)
[2022-03-24 20:41] LABS: Vancomycin Trough 16.2 ug/mL (10-15)
[2022-03-25] VITALS (14 sets, daily range): BP systolic 142–190; BP diastolic 69–85; PULSE 77–96; RESP 15–21; TEMP 36.3–36.7; O2SAT 93–100
[2022-03-25] MEDS: acetaminophen 500 mg Tablet 1000 MG PO ×2 (00:20→11:43)
[2022-03-25] MEDS: sodium chloride 0.9% 1,000 ML 125 ML IV (00:20)
[2022-03-25 05:12] LABS: Basophils # 0.1 10^3/uL (0.0-0.1); Basophils % 0.6 %; Eosinophils # 0.2 10^3/uL (0.0-0.8); Eosinophils % 0.9 %; Hematocrit 38.7 % (37.0-47.0); Hemoglobin 11.7 g/dL (11.5-15.3); Lymphocytes # 4.2 10^3/uL (0.8-4.8); Lymphocytes % 18.2 %; Mean Corpuscular HGB Conc 30.2 g/dL (30.0-36.0); Mean Corpuscular Hemoglobin 27.8 pg (28.0-34.0); Mean Corpuscular Volume 91.9 fl (81-99); Mean Platelet Volume 11.7 fL (7.4-10.4); Monocytes # 1.2 10^3/uL (0.2-0.9); Monocytes % 5.3 %; Neutrophils # 16.09 10^3/uL (1.8-7.7); Neutrophils % 70.3 %; Nucleated Red Blood Cells % 0 %; Platelet Count 274 10^3/cmm (130-400); Red Blood Count 4.21 10^6/uL (4.1-5.3); Red Cell Distribution Width 15.5 % (12.1-15.1); White Blood Count 22.9 10^3/uL (4.0-10.0)
[2022-03-25] MEDS: heparin 5,000 unit/mL INJ 1 mL 5000 UNIT SUBCUT (05:28)
[2022-03-25 05:53] LABS: Blood Urea Nitrogen 21 mg/dL (8-23); Calcium 8.8 mg/dL (8.5-10.5); Carbon Dioxide 17 mmol/L (22-29); Chloride 104 mmol/L (98-107); Glucose 114 mg/dL (65-115); Osmolality Calculated 282 mOsm/kg (285-295); Sodium 134 mmol/L (136-145)
[2022-03-25 05:55] LABS: Anion Gap 17.8 (5-19); Potassium 4.8 mmol/L (3.5-5.1)
[2022-03-25] MEDS: ipratropium-albuterol 3 mL Neb INHALATION ×2 (08:00→11:28)
[2022-03-25] MEDS: benzonatate 100 mg Capsule PO ×3 (08:07→20:32)
[2022-03-25] MEDS: sennosides-docusate Tablet 1 TAB PO ×2 (08:07→17:10)
[2022-03-25] MEDS: vancomycin 1,250 MG/250 ML PIGGYBACK 200 MG IV (08:07)
[2022-03-25] MEDS: montelukast sodium 10 mg Tablet PO (08:07)
[2022-03-25] MEDS: TRIAMTERENE HYDROCHLOROTHIAZID 1 EACH PO (08:17)
[2022-03-25] MEDS: piperacillin-tazobactam 3.375 GM in sodium chloride 0.9% (plus) 50 ML IV ×2 (09:54→15:54)
--- NOTE | 2022-03-25 12:37 | PM.PN ---
Subjective Subjective: Patient is stating that she is feeling slightly better today Afebrile Leukocytosis 22,000 Cultures negative No signs of MRSA Spoke with Dr. Neal who will see her today after his clinic hours he could not pull her CT scan from his office Vitals/I&O/Wt Last Vital Signs Temp 97.8 F 03/25/22 11:39 Pulse 79 03/25/22 11:39 Resp 15 03/25/22 11:39 BP 142/69 03/25/22 11:39 Pulse Ox 100 03/25/22 11:39 O2 Del Method 03/25/22 11:39 FiO2 21 03/24/22 20:32 03/24/22 03/25/22 03/25/22 22:59 06:59 14:59 Intake Total 1290 / 3188.334 300 / 3488.334 490 / 490 Balance 1290 / 3188.334 300 / 3488.334 490 / 490 Physical Exam Narrative: Left-sided facial swelling Tender No active drainage No active signs of cellulitis Hemodynamically stable Currently on room air No airway compromise EOMI, PERRLA GCS 15 Awake and alert Very pleasant cooperative Abdomen soft S1, S2 Data 03/25/22 04:44 03/25/22 04:44 Micro: Microbiology 03/20/22 12:31 Blood Culture - Final Blood NO GROWTH AFTER 5 DAYS 03/20/22 12:30 Blood Culture - Final Blood NO GROWTH AFTER 5 DAYS A&P Assessment and plan (1) Abscess: (2) Asthma: (3) Hypertension: Plan Left maxillary phlegmon Dr. Pan will see her today I have requested midline placement and 2 weeks of ceftriaxone 2 g daily Patient clinically is doing better No fever Cultures negative No signs of meningitis I will give her ketorolac one-time In case of further pain she would benefit from anti-inflammatory medications Continue broad-spectrum antibiotics for now Full code Hold DVT prophylaxis in case abscess could be drained by Dr. Pan Attestations Medical Necessity Statement*: To be seen by ENT today Time Spent in Patient Care: 30 Coding Level of Care Code Acute Code for [facility] Diagnoses Abscess L02.91 Asthma J45.909 Hypertension I10
[2022-03-25] MEDS: ketorolac 30 mg/mL INJ 15 MG IVP ×2 (12:42→18:35)
--- NOTE | 2022-03-25 14:00 | PC.NURSE ---
Midline placed to left basilic vein without difficulty. 15 cm inserted with 0 cm external length noted. Mid arm circumference 51 cm measured 10 cm from left AC space. Dressing due to be changed tomorrow, 03/26/22. Report given to charge nurseValeriy.
[2022-03-25] MEDS: ipratropium 0.5 mg/2.5 mL Neb INHALATION ×2 (15:36→19:34)
[2022-03-25] MEDS: albuterol 2.5 mg/3 mL Neb INHALATION ×2 (15:36→19:34)
--- NOTE | 2022-03-25 17:55 | P.CONIM_ITS ---
Providers/Reason For Consult Consulting Physician/Specialty*: Dr. Shan Neal MD Otolaryngology, Head & Neck Surgery Reason for Consult*: Left facial infection Requesting Physician: Dr. Kimberly Cunningham MD Attending Physician: Kimberly Cunningham MD Primary Care Provider: QUIANA Aquino History of Present Illness History of Present Illness Rosa Espino is a 61 year old female who was well until one week ago when she developed a 'pimple' on her left nostril that progressed to left facial swelling. The patient was placed on po Augmentin, but her left facial swelling worsened significantly over the subsequent 48 hours. She was admitted 5 days ago and was placed on IV Zosyn and Vancomycin. The patient reports that her lef t facial swelling has substantially improved over the past 5 days. I was consulted to help r/o a residual abscess in the area. The patient has no h/o DM, and is o/w without c/o. Review of Systems General: Reports: 10 or more systems reviewed and unremarkable except in HPI and below Medications/Allergies Home Medications Medication Instructions Recorded Confirmed Last Taken Type melatonin 10 mg capsule 40 mg PO DAILY 11/23/20 03/20/22 03/19/22 History Saccharomyces boulardii 250 mg 250 mg PO BID 06/19/21 03/20/22 03/19/22 History capsule (Daily Probiotic (S. boulardii)) ascorbic acid (vitamin C) 1,000 mg 500 mg PO DAILY 06/19/21 03/20/22 03/19/22 History tablet coenzyme Q10 200 mg capsule (Co 200 mg PO DAILY 06/19/21 03/20/22 03/19/22 History Q-10) cyanocobalamin (vitamin B-12) 500 500 mcg PO DAILY 06/19/21 03/20/22 03/19/22 History mcg tablet (Vitamin B-12) ferrous sulfate 27 mg iron tablet 27 mg PO DAILY 06/19/21 03/20/22 03/19/22 History glucosamine sulfate 500 mg tablet 500 mg PO DAILY 06/19/21 03/20/22 03/19/22 History (Glucosamine) omega 4-twy-hvg-fish oil 60 mg-90 1 cap PO DAILY 06/19/21 03/20/22 03/19/22 History mg-500 mg capsule (Fish Oil) albuterol sulfate 90 mcg/actuation 2 puff inhalation QID PRN 01/01/22 03/20/22 03/20/22 Rx aerosol inhaler (ProAir HFA) shortness of breath or wheezing #6.7 grams montelukast 10 mg tablet 10 mg PO DAILY #30 tabs 01/01/22 03/20/22 03/19/22 Rx olmesartan 40 mg tablet 40 mg PO DAILY #30 tabs 01/01/22 03/20/22 03/19/22 Rx triamterene 37.5 1 tab PO DAILY #30 tabs 01/01/22 03/20/22 03/19/22 Rx mg-hydrochlorothiazide 25 mg tablet budesonide-formoterol HFA 160 2 puff inhalation BID #10.2 grams 01/02/22 03/20/22 03/19/22 Rx mcg-4.5 mcg/actuation aerosol inhaler (Symbicort) amoxicillin 875 mg-potassium 1 tab PO BID 03/20/22 03/20/22 03/19/22 History clavulanate 125 mg tablet benzonatate 100 mg capsule 100 mg PO TID 03/20/22 03/20/22 03/19/22 History clindamycin HCl 300 mg capsule 300 mg PO TID #30 caps 03/20/22 03/20/22 Unknown Rx latanoprost 0.005 % eye drops 1 drp ophthalmic (eye) BEDTIME 03/20/22 03/20/22 03/19/22 History triamcinolone acetonide 0.1 % 1 applic topical BID 03/20/22 03/20/22 03/19/22 History topical cream zinc acetate 50 mg (zinc) capsule 50 mg PO DAILY 03/20/22 03/20/22 03/19/22 History Allergies Allergy/AdvReac Type Severity Reaction Status Date / Time codeine Allergy ADR-Nausea Verified 03/20/22 15:43 morphine Allergy ADR-Nausea Verified 03/20/22 15:43 Current Medications Generic Name Dose Route Start Last Admin Trade Name Freq PRN Reason Stop Dose Admin Acetaminophen 1,000 mg 03/21/22 00:15 03/25/22 11:43 Acetaminophen 500 Mg Tablet PO 1,000 mg Q8H PRN Administration Mild/Mod Pain Or Temp >/= 101 Albuterol Sulfate 2.5 mg 03/25/22 16:00 03/25/22 15:36 Albuterol 2.5 Mg/3 Ml Neb INHALATION 2.5 mg QID.RESPIRATORY JV Administration Benzonatate 100 mg 03/20/22 21:00 03/25/22 14:56 Benzonatate 100 Mg Capsule PO 100 mg TID JV Administration Heparin Sodium (Porcine) 5,000 unit 03/20/22 17:00 03/25/22 05:28 Heparin 5,000 Unit/Ml Inj 1 Ml SUBCUT 5,000 unit Q12H JV Administration Piperacillin Sod/Tazobactam 50 mls @ 12.5 mls/hr 03/20/22 21:00 03/25/22 15:54 Sod 3.375 gm/ Sodium Chloride IV 12.5 mls/hr Q8H JV Administration Vancomycin/PEG/NADA/Lysine/Water 1,250 mg in 250 mls @ 240 mls/hr 03/23/22 09:00 03/25/22 09:44 Vancocin IV Infused Q12H JV Infusion Ipratropium [place] 0.5 mg 03/25/22 16:00 03/25/22 15:36 Ipratropium 0.5 Mg/2.5 Ml Neb INHALATION 0.5 mg QID.RESPIRATORY JV Administration Latanoprost 1 drop 03/20/22 21:00 03/24/22 22:00 Latanoprost 0.005% Op Soln 2.5 Ml Btl EYE-BOTH Not Given BEDTIME JV Losartan Potassium 50 mg 03/21/22 20:15 03/24/22 20:05 Losartan 50 Mg Tablet PO 50 mg Q24H JV Administration Montelukast Sodium 10 mg 03/21/22 09:00 03/25/22 08:07 Montelukast Sodium 10 Mg Tablet PO 10 mg DAILY JV Administration Non-Formulary Medication 27 mg 03/21/22 09:00 03/25/22 08:18 Ferrous Sulfate PO Not Given DAILY JV Non-Formulary Medication 1 tab 03/21/22 20:15 03/25/22 08:17 Triamterene-Hydrochlorothiazid PO 1 tab Q24H JV Administration Senna/Docusate Sodium 1 tab 03/21/22 18:00 03/25/22 17:10 Sennosides-Docusate Tablet PO 1 tab BID JV Administration PFSH Acute PFSH: Medical History History of asthma Hx of essential hypertension Surgical History Hx of cholecystectomy Hx of hysterectomy Family History Father Hypertension Mother Stroke Social History Smoking and tobacco status: never smoked Second hand smoke exposure: No Smoking risk assessment/counseling performed?: No Alcohol intake: never Desire information about alcohol rehabilitation?: No Counseling given: No Desire information about substance/drug rehabilitation?: No Counseling given: No Adopted: No Caregiver/support person: No Lives independently: Yes Housing: House Number of children: 2 service: No Current occupational status: employed and retired Vitals/I&O/Wt Last Vital Signs Temp 97.6 F 03/25/22 15:55 Pulse 86 03/25/22 15:55 Resp 18 03/25/22 15:55 BP 144/76 03/25/22 15:55 Pulse Ox 96 03/25/22 15:55 O2 Del Method 03/25/22 15:55 FiO2 21 03/24/22 20:32 03/25/22 03/25/22 03/25/22 06:59 14:59 22:59 Intake Total 300 / 3488.334 780 / 780 1000 / 1780 Balance 300 / 3488.334 780 / 780 1000 / 1780 Physical Exam Const: COMMON NORMALS: no acute distress, patient oriented x3 and alert ORIENTATION/CONSCIOUSNESS: Yes awake HENMT: COMMON NORMALS: normocephalic, atraumatic and Normal external nose present HEAD & SCALP: normocephalic and atraumatic FACE & SINUS: fluctuance (There is no left facial fluctuance; there is left facial erythema) and other (There is significant left facial swelling and induration) NOSE: Normal external nose present MOUTH: Normal oral and palatal mucosa present and tongue normal Eye: COMMON NORMALS: Equal, round and reactive pupils present and EOMs intact bilaterally PUPIL: Yes Equal, round and reactive pupils present Neck/C-Spine: COMMON NORMALS: full ROM and supple Neuro: COMMON NORMALS: patient oriented x3 SENSORIUM/ORIENTATION: Yes alert Data 03/25/22 04:44 03/25/22 04:44 Micro: Microbiology 03/20/22 12:31 Blood Culture - Final Blood NO GROWTH AFTER 5 DAYS 03/20/22 12:30 Blood Culture - Final Blood NO GROWTH AFTER 5 DAYS Attestation for Other Data: I personally reviewed and interpreted the following: Other data: Facial Bone CT with/without IV Contrast from 03/24/22 A&P Assessment and plan (1) Cellulitis of face: Impression: Left facial cellulitis with phlegmon Plan: - Continue IV antibiotics until induration/swelling mostly resolved, then change to po - F/U in Dr. Neal's office in one week - Notify Dr. Neal for any changes in status Consult Attestations Medical Necessity Statement: I was consulted to r/o an abscess/advise on treatment. Procedures Procedure Narrative Procedure: verbal informed consent was obtained; the patient's left facial swelling was prepped with Betadyne and aspirated with a 22 guage needle on a 3mL syringe; no purulent material was obtained. Coding Level of Care Code Acute Code for [facility] Diagnoses Cellulitis of face L03.211
[2022-03-25] MEDS: losartan 50 mg Tablet PO (20:29)
[2022-03-25] MEDS: vancomycin 1,250 MG/250 ML PIGGYBACK 240 MG IV (20:32)
[2022-03-25] MEDS: latanoprost 0.005% Op Soln 2.5 mL Btl 1 DROP EYE-BOTH (21:23)
[2022-03-26] MEDS: piperacillin-tazobactam 3.375 GM in sodium chloride 0.9% (plus) 50 ML IV ×2 (00:49→10:26)
[2022-03-26 04:00] VITALS: BP 161/88; PULSE 85; RESP 17; TEMP 36.5; O2SAT 96
[2022-03-26 05:45] LABS: Basophils # 0.2 10^3/uL (0.0-0.1); Basophils % 0.9 %; Eosinophils # 0.9 10^3/uL (0.0-0.8); Hematocrit 37.8 % (37.0-47.0); Hemoglobin 11.4 g/dL (11.5-15.3); Lymphocytes # 2.9 10^3/uL (0.8-4.8); Lymphocytes % 15.2 %; Mean Corpuscular HGB Conc 30.2 g/dL (30.0-36.0); Mean Corpuscular Hemoglobin 28.1 pg (28.0-34.0); Mean Corpuscular Volume 93.3 fl (81-99); Mean Platelet Volume 11.8 fL (7.4-10.4); Monocytes # 0.9 10^3/uL (0.2-0.9); Monocytes % 4.7 %; Neutrophils # 12.79 10^3/uL (1.8-7.7); Neutrophils % 67.9 %; Nucleated Red Blood Cells % 0 %; Platelet Count 277 10^3/cmm (130-400); Red Blood Count 4.05 10^6/uL (4.1-5.3); Red Cell Distribution Width 15.5 % (12.1-15.1); White Blood Count 18.8 10^3/uL (4.0-10.0)
[2022-03-26 06:15] LABS: Blood Urea Nitrogen 24 mg/dL (8-23); C Reactive Protein 22.6 mg/L (0.0-4.9); Calcium 8.9 mg/dL (8.5-10.5); Carbon Dioxide 20 mmol/L (22-29); Chloride 104 mmol/L (98-107); Glomerular Filtration Rate 45.4 mL/min (90-130); Glucose 89 mg/dL (65-115); Osmolality Calculated 286 mOsm/kg (285-295); Sodium 136 mmol/L (136-145)
[2022-03-26 06:22] LABS: Anion Gap 16.5 (5-19); Potassium 4.5 mmol/L (3.5-5.1)
[2022-03-26 06:34] LABS: Slide Review Slide Review Perform
[2022-03-26] MEDS: albuterol 2.5 mg/3 mL Neb INHALATION ×2 (07:49→11:17)
[2022-03-26 07:52] VITALS: PULSE 86; RESP 18; O2SAT 97
[2022-03-26 07:56] VITALS: PULSE 92
[2022-03-26 08:00] VITALS: BP 169/78; PULSE 87; RESP 15; TEMP 36.7; O2SAT 96
[2022-03-26] MEDS: montelukast sodium 10 mg Tablet PO (09:00)
[2022-03-26] MEDS: benzonatate 100 mg Capsule PO (09:00)
[2022-03-26] MEDS: sennosides-docusate Tablet 1 TAB PO (09:00)
[2022-03-26] MEDS: vancomycin 1,250 MG/250 ML PIGGYBACK 240 MG IV (09:01)
[2022-03-26] MEDS: TRIAMTERENE HYDROCHLOROTHIAZID 1 EACH PO (09:18)
--- NOTE | 2022-03-26 10:52 | P.DS_ITS ---
Discharge Providers Date of Admission: 03/20/22 15:26 Date of Discharge: March 26, 2022 Attending Provider at Admission: Magalie Cast MD Attending Provider at Discharge: Kimberly Cunningham MD Primary Care Provider: QUIANA Aquino Diagnoses at Discharge Discharge Diagnosis (1) Cellulitis of face: Status: Acute Reason for Visit Reason for Visit: Infection on the left side of the face. Hospital Course Hospital Course 61-year-old female who presented for worsening of swelling of her left cheek after she squeezed her pimple from left nostril, she was not septic or bacteremic, she received IV antibiotics for 6 days in the hospital, ENT was consulted, I&D was attempted however no fluid was able to be drained, most likely there is phlegmon, because her area of infection is considered danger area or development of cerebral venous thrombosis or meningitis she will get 14 days of total antibiotics, I will prescribe her 10 more days of ceftriaxone 2 g daily. I advised her not to use ibuprofen because of her creatinine 1.2. She remained hypertensive amlodipine added to her home regimen. Opioids prescribed at the time of discharge, she has listed allergy as nausea which is a general side effect of opioids. Midline placed in left arm 03/25 Physical Exam Narrative: No signs of meningitis Awake and alert Left-sided cheek swelling Redness improving Awake and alert EOMI, PERRLA S1, S2 Doing well on room air Discharge Data Studies Completed and Pending Completed Studies During Hospitalization Category Date Time Status CT facial bones w con [id number] Routine Cat Scan 03/24/22 06:[address] facial bones w con [id number] Stat Cat Scan 03/20/22 12:20 Completed Radiology Impressions Face CT 03/24/22 06:00 IMPRESSION: In comparison with prior exam on 03/20/2022 there is no significant change in size of the abscess anteriorly to the left side of the maxilla, and increased patchy edema in the overlying subcutaneous fat in the left cheek suggestive of worsening phlegmon. There is slight increase in mucosal thickening in the paranasal sinuses with new meniscus of fluid in the right maxillary sinus. Laboratory Results WBC 18.8 10^3/uL (4.0-10.0) H 03/26/22 04:36 RBC 4.05 10^6/uL (4.1-5.3) L 03/26/22 04:36 Hgb 11.4 g/dL (11.5-15.3) L 03/26/22 04:36 Hct 37.8 % (37.0-47.0) 03/26/22 04:36 MCV 93.3 fl (81-99) 03/26/22 04:36 MCH 28.1 pg (28.0-34.0) 03/26/22 04:36 MCHC 30.2 g/dL (30.0-36.0) 03/26/22 04:36 RDW 15.5 % (12.1-15.1) H 03/26/22 04:36 Plt Count 277 10^3/cmm (130-400) 03/26/22 04:36 MPV 11.8 fL (7.4-10.4) H 03/26/22 04:36 Neut % (Auto) 67.9 % 03/26/22 04:36 Lymph % (Auto) 15.2 % 03/26/22 04:36 [place] % (Auto) 4.7 % 03/26/22 04:36 Eos % (Auto) 5.0 % 03/26/22 04:36 Baso % (Auto) 0.9 % 03/26/22 04:36 Neut # (Auto) 12.79 10^3/uL (1.8-7.7) H 03/26/22 04:36 Lymph # (Auto) 2.9 10^3/uL (0.8-4.8) 03/26/22 04:36 [place] # (Auto) 0.9 10^3/uL (0.2-0.9) 03/26/22 04:36 Eos # (Auto) 0.9 10^3/uL (0.0-0.8) H 03/26/22 04:36 Baso # (Auto) 0.2 10^3/uL (0.0-0.1) H 03/26/22 04:36 Nucleated RBC % (auto) 0 % 03/26/22 04:36 Nucleated RBCs # 0.0 /100WBC 03/26/22 04:36 Sodium 136 mmol/L (136-145) 03/26/22 04:36 Potassium 4.5 mmol/L (3.5-5.1) 03/26/22 04:36 Chloride 104 mmol/L (98-107) 03/26/22 04:36 Carbon Dioxide 20 mmol/L (22-29) L 03/26/22 04:36 Anion Gap 16.5 (5-19) 03/26/22 04:36 BUN 24 mg/dL (8-23) H 03/26/22 04:36 Creatinine 1.2 mg/dL (0.5-0.9) H 03/26/22 04:36 GFR Calculation 45.4 mL/min (90-130) L 03/26/22 04:36 Glucose 89 mg/dL (65-115) 03/26/22 04:36 Calculated Osmolality 286 mOsm/kg (285-295) 03/26/22 04:36 Lactic Acid 1.0 mmol/L (0.5-2.2) 03/20/22 16:18 Calcium 8.9 mg/dL (8.5-10.5) 03/26/22 04:36 Total Bilirubin 0.5 mg/dL (0.15-1.2) 03/20/22 12:10 AST 23 U/L (0-32) 03/20/22 12:10 ALT 64 U/L (0-33) H 03/20/22 12:10 Alkaline Phosphatase 132 U/L (35-105) H 03/20/22 12:10 C-Reactive Protein 22.6 mg/L (0.0-4.9) H 03/26/22 04:36 Total Protein 7.0 g/dL (6.6-8.7) 03/20/22 12:10 Albumin 3.6 g/dL (3.5-5.2) 03/20/22 12:10 Globulin 3.4 g/dL (1.3-4.6) 03/20/22 12:10 Procalcitonin 0.06 ng/mL (0-0.5) 03/20/22 12:10 Vancomycin Trough 16.2 ug/mL (10-15) H 03/24/22 20:06 Vitals Last Vital Signs Temp 98.0 F 03/26/22 08:00 Pulse 87 03/26/22 08:00 Resp 15 03/26/22 08:00 BP 169/78 03/26/22 08:00 Pulse Ox 96 03/26/22 08:00 O2 Del Method 03/26/22 08:00 FiO2 21 03/24/22 20:32 Discharge Plan Discharge Patient Disposition: Home Condition: Stable Prescriptions: New oxycodone 5 mg tablet 5 mg PO DAILY PRN (Reason: pain) Qty: 7 0RF ceftriaxone 2 gram recon soln 2 g IV Q24H Qty: 10 0RF amlodipine 10 mg tablet 10 mg PO DAILY Qty: 30 3RF Continued melatonin 10 mg capsule 40 mg PO DAILY coenzyme Q10 [Co Q-10] 200 mg capsule 200 mg PO DAILY Saccharomyces boulardii [Daily Probiotic (S. boulardii)] 250 mg capsule 250 mg PO BID glucosamine sulfate [Glucosamine] 500 mg tablet 500 mg PO DAILY Rx Instructions: administer with a meal ferrous sulfate 27 mg iron tablet 27 mg PO DAILY cyanocobalamin (vitamin B-12) [Vitamin B-12] 500 mcg tablet 500 mcg PO DAILY omega 8-xav-anj-fish oil [Fish Oil] 60-90-500 mg capsule 1 cap PO DAILY ascorbic acid (vitamin C) 1,000 mg tablet 500 mg PO DAILY triamterene-hydrochlorothiazid 37.5-25 mg tablet 1 tab PO DAILY Qty: 30 5RF montelukast 10 mg tablet 10 mg PO DAILY Qty: 30 5RF albuterol sulfate [ProAir HFA] 90 mcg/actuation HFA aerosol inhaler 2 puff inhalation QID PRN (Reason: shortness of breath or wheezing) Qty: 6.7 5RF budesonide-formoterol [Symbicort] 160-4.5 mcg/actuation HFA aerosol inhaler 2 puff inhalation BID Qty: 10.2 5RF Rx Instructions: 340B latanoprost 0.005 % drops 1 drp ophthalmic (eye) BEDTIME zinc acetate 50 mg (zinc) Capsule 50 mg PO DAILY benzonatate 100 mg capsule 100 mg PO TID triamcinolone acetonide 0.1 % cream 1 applic TOPICAL BID Held olmesartan 40 mg tablet 40 mg PO DAILY Qty: 30 5RF Hold Instructions: Resume on 03/29/22. Please hold this medication for the next 3 days because of creatinine 1.3 Discontinued amoxicillin-pot clavulanate 875-125 mg tablet 1 tab PO BID clindamycin HCl 300 mg capsule 300 mg PO TID Qty: 30 0RF Discharge Orders: Discharge Order (Routine); Ordered 03/26/22 Ordered By: Kimberly Cunningham Referrals: Shan Neal MD [Physician] - 04/01/22 8:30 am Alba Melton FNP-C [Primary Care Provider] - 04/03/22 10:00 am Patient Instructions: Oxycodone/Acetaminophen (By mouth), Amlodipine (By mouth), Ceftriaxone (By injection), How to Care for Your Midline Catheter (GEN), Opioid Safety, Pain Management Discharge Attestations Time Spent in Discharge Care*: less than 30 min Quality Metrics Clinical Quality Measures [ No reported AMI, CVA or VTE this stay] Coding Level of Care Code Acute Chg FW DC note Diagnoses Cellulitis of face L03.211
[2022-03-26] MEDS: cefTRIAXone 2,000 MG in sodium chloride 0.9% (plus) 50 ML 100 MG IV (11:13)
[2022-03-26] MEDS: acetaminophen 500 mg Tablet 1000 MG PO (11:14)
[2022-03-26] MEDS: ipratropium 0.5 mg/2.5 mL Neb INHALATION (11:17)
[2022-03-26 11:20] VITALS: PULSE 96; RESP 18; O2SAT 98
[2022-03-26 12:29] VITALS: PULSE 96; RESP 18; O2SAT 98
--- NOTE | 2022-03-26 12:31 | PC.NURSE ---
MIDLINE DRESSING CHANGED BY RAMÓN CURIEL
== END 2022-03-26 12:31 | disposition home or self-care (01) | DRG 603 ==
LOC: ER 15:27 → MEDSURG 17:34
PROVIDERS: Admitting Provider Internal Medicine; Emergency Provider Physician Assistant; PCP Nurse Practitioner Family; Visit Provider Internal Medicine
DX: L03.211 Cellulitis of face (principal); L02.01 Cutaneous abscess of face; J44.1 Chronic obstructive pulmonary disease with (acute) exacerbation; N17.9 Acute kidney failure, unspecified; I10 Essential (primary) hypertension; D50.9 Iron deficiency anemia, unspecified
CPT/HCPCS: 12345; 36415; 36569; 70487; 80048; 80053; 80202; 83605; 84145; 85025; 86140; 87040; 87641; 94640; 94664; 96365; 96367; 96372; 96375; 96376; 99285; C1751; J0696; J1644; J1885; J2405; J2543; J2920; J3010; J3370; J7030; J7050; J7613; J7644; Q9967

== ENCOUNTER → 2022-04-03 11:30 | Outpatient (BNVA) | payer OTHER, SELFPAY | PROVIDERS: PCP Nurse Practitioner Family; Visit Provider Nurse Practitioner Family | DX: L03.211 Cellulitis of face (principal) | CPT/HCPCS: 80053; 85025 ==

== ENCOUNTER → 2023-02-11 10:21 | Outpatient (BNVA) | payer SELFPAY | PROVIDERS: PCP Nurse Practitioner Family; Visit Provider Nurse Practitioner Family | DX: Z01.89 Encounter for other specified special examinations (principal); I10 Essential (primary) hypertension ==

== ENCOUNTER → 2023-02-20 10:16 | Outpatient (BNVA) | payer OTHER, SELFPAY | PROVIDERS: PCP Nurse Practitioner Family; Visit Provider Nurse Practitioner Family | DX: D72.829 Elevated white blood cell count, unspecified (principal) | CPT/HCPCS: 85025 ==

== ENCOUNTER → 2023-03-12 12:54 | Outpatient (BNVA) | payer OTHER, SELFPAY | PROVIDERS: PCP Nurse Practitioner Family; Visit Provider Nurse Practitioner Family | DX: D72.829 Elevated white blood cell count, unspecified (principal) | CPT/HCPCS: 85025 ==

== ENCOUNTER → 2023-03-31 09:37 | Outpatient (BNVA) | payer OTHER, SELFPAY | PROVIDERS: Visit Provider Family Medicine | DX: D72.829 Elevated white blood cell count, unspecified (principal); I10 Essential (primary) hypertension; E78.5 Hyperlipidemia, unspecified; N18.30 Chronic kidney disease, stage 3 unspecified; J45.909 Unspecified asthma, uncomplicated; Z76.89 Persons encountering health services in other specified circumstances; M25.562 Pain in left knee | CPT/HCPCS: 85025 ==

== ENCOUNTER → 2023-07-03 09:47 | Outpatient (BNVA) | payer OTHER, SELFPAY | PROVIDERS: PCP Family Medicine; Visit Provider Family Medicine | DX: D72.829 Elevated white blood cell count, unspecified (principal) | CPT/HCPCS: 85025 ==

== ENCOUNTER 2023-10-28 09:23 | Oncology outpatient (recurring) (ONCR) | payer OTHER, SELFPAY ==
[2023-10-28 10:42] LABS: Basophils # 0.2 10^3/uL (0.0-0.1); Basophils % 1.1 %; Eosinophils # 0.5 10^3/uL (0.0-0.8); Eosinophils % 2.7 %; Hematocrit 43.7 % (36-47); Lymphocytes # 3.5 10^3/uL (0.8-4.8); Lymphocytes % 19.2 %; Mean Corpuscular HGB Conc 31.6 g/dL (30-55); Mean Corpuscular Volume 88.8 fl (85-98); Mean Platelet Volume 11.4 fL (7.4-10.4); Monocytes # 1.1 10^3/uL (0.2-0.9); Monocytes % 6.1 %; Neutrophils # 12.59 10^3/uL (1.8-7.7); Neutrophils % 68.8 %; Nucleated Red Blood Cells % 0 %; Platelet Count 423 10^3/cmm (157-399); Red Blood Count 4.92 10^6/uL (3.85-5.65); Red Cell Distribution Width 14.5 % (12.1-15.1); White Blood Count 18.29 10^3/uL (3.29-11.43)
[2023-10-28 11:05] LABS: Erythrocyte Sedimentation Rate 51 mm/hr (0-15)
[2023-10-28 11:07] LABS: Alanine Aminotransferase 35 U/L (0-33); Albumin Level 4.1 g/dL (3.5-5.2); Alkaline Phosphatase 120 U/L (35-105); Anion Gap 18.2 (5-19); Aspartate Amino Transferase 24 U/L (0-32); Blood Urea Nitrogen 30 mg/dL (8-23); C Reactive Protein 7.9 mg/L (0.0-4.9); Calcium 9.5 mg/dL (8.5-10.5); Carbon Dioxide 25 mmol/L (22-29); Chloride 99 mmol/L (98-107); Creatinine Clr Calc Pharmacy 80.2841; Globulin 3.2 g/dL (1.3-4.6); Glucose 102 mg/dL (65-115); Lactate Dehydrogenase 173 U/L (135-214); Osmolality Calculated 292 mOsm/kg (285-295); Potassium 4.2 mmol/L (3.5-5.1); Sodium 138 mmol/L (136-145); Total Bilirubin 0.3 mg/dL (0.15-1.2); Total Protein 7.3 g/dL (6.6-8.7)
[2023-10-28 11:20] LABS: Vitamin B12 1893 pg/mL (232-1245)
[2023-10-28 11:45] LABS: LAB Peripheral Smear Sent for Review
[2023-10-28 12:38] LABS: Iron 39 ug/dL (37-145); Percent Saturation 15.1 % (20-50); Total Iron Binding Capacity 258 mcg/dl; Unsaturated Iron Binding 219 ug/dL (112-347)
== END 2023-11-01 23:59 | disposition home or self-care (01) ==
PROVIDERS: PCP Family Medicine; Visit Provider Internal Medicine Medical Oncology
DX: Z53.9 Procedure and treatment not carried out, unspecified reason (principal); D72.829 Elevated white blood cell count, unspecified
CPT/HCPCS: 36415; 80053; 82607; 83540; 83550; 83615; 85025; 85651; 86140; 88374

== ENCOUNTER → 2023-11-13 09:21 | Outpatient (BNVA) | payer MEDICARE, OTHER, SELFPAY | PROVIDERS: PCP Family Medicine; Visit Provider Family Medicine | DX: Z13.1 Encounter for screening for diabetes mellitus (principal); N18.30 Chronic kidney disease, stage 3 unspecified; M10.9 Gout, unspecified; E78.5 Hyperlipidemia, unspecified | CPT/HCPCS: 80061; 83036; 84550 ==

== ENCOUNTER 2023-12-02 11:15 | Oncology outpatient (recurring) (ONCR) | payer MEDICARE, OTHER, SELFPAY ==
[2023-12-02 11:53] LABS: Basophils # 0.1 10^3/uL (0.0-0.1); Basophils % 0.9 %; Eosinophils # 0.3 10^3/uL (0.0-0.8); Eosinophils % 2.1 %; Hematocrit 40.5 % (36-47); Lymphocytes # 2.5 10^3/uL (0.8-4.8); Lymphocytes % 19.1 %; Mean Corpuscular HGB Conc 31.6 g/dL (30-55); Mean Corpuscular Hemoglobin 28.1 pg (27-33); Mean Corpuscular Volume 88.8 fl (85-98); Mean Platelet Volume 11.8 fL (7.4-10.4); Monocytes # 0.9 10^3/uL (0.2-0.9); Neutrophils # 9.17 10^3/uL (1.8-7.7); Neutrophils % 69.9 %; Nucleated Red Blood Cells % 0 %; Platelet Count 338 10^3/cmm (157-399); Red Blood Count 4.56 10^6/uL (3.85-5.65); Red Cell Distribution Width 14.7 % (12.1-15.1); White Blood Count 13.11 10^3/uL (3.29-11.43)
[2023-12-02 11:56] LABS: Erythrocyte Sedimentation Rate 31 mm/hr (0-15)
[2023-12-02 12:12] LABS: Alanine Aminotransferase 22 U/L (0-33); Alkaline Phosphatase 120 U/L (35-105); Anion Gap 16.9 (5-19); Aspartate Amino Transferase 16 U/L (0-32); Blood Urea Nitrogen 24 mg/dL (8-23); C Reactive Protein 18.1 mg/L (0.0-4.9); Calcium 9.2 mg/dL (8.5-10.5); Carbon Dioxide 25 mmol/L (22-29); Chloride 101 mmol/L (98-107); Globulin 3.3 g/dL (1.3-4.6); Glomerular Filtration Rate 49.8 mL/min (90-130); Glucose 97 mg/dL (65-115); Osmolality Calculated 290 mOsm/kg (285-295); Potassium 4.9 mmol/L (3.5-5.1); Sodium 138 mmol/L (136-145); Total Bilirubin 0.3 mg/dL (0.15-1.2); Total Protein 7.3 g/dL (6.6-8.7)
[2023-12-02] MEDS: flu vacc pf 24-25 (6 mos+) SYRINGE 45 MCG IM (14:04)
== END 2024-01-01 23:59 | disposition home or self-care (01) ==
PROVIDERS: PCP Family Medicine; Visit Provider Internal Medicine Medical Oncology
DX: D72.829 Elevated white blood cell count, unspecified (principal); N18.30 Chronic kidney disease, stage 3 unspecified; M25.562 Pain in left knee; Z23 Encounter for immunization; I12.9 Hypertensive chronic kidney disease with stage 1 through stage 4 chronic kidney disease, or unspecified chronic kidney disease
CPT/HCPCS: 36415; 80053; 85025; 85651; 86140; 90471; 90686; 99214

== ENCOUNTER → 2024-02-12 11:23 | Outpatient (BNVA) | payer MEDICARE, OTHER, SELFPAY | PROVIDERS: PCP Family Medicine; Visit Provider Family Medicine | DX: M17.12 Unilateral primary osteoarthritis, left knee; M25.562 Pain in left knee | CPT/HCPCS: 73562 ==

== ENCOUNTER 2024-06-07 12:28 | Oncology outpatient (recurring) (ONCR) | payer MEDICARE, OTHER, SELFPAY ==
[2024-06-07 12:52] LABS: Basophils # 0.2 10^3/uL (0.0-0.1); Basophils % 1.2 %; Eosinophils # 0.2 10^3/uL (0.0-0.8); Eosinophils % 1.3 %; Hematocrit 40.6 % (36-47); Lymphocytes # 2.5 10^3/uL (0.8-4.8); Lymphocytes % 16.6 %; Mean Corpuscular HGB Conc 31.5 g/dL (30-55); Mean Corpuscular Hemoglobin 28.6 pg (27-33); Mean Corpuscular Volume 90.6 fl (85-98); Monocytes # 0.9 10^3/uL (0.2-0.9); Monocytes % 5.9 %; Neutrophils # 11.17 10^3/uL (1.8-7.7); Neutrophils % 73.7 %; Nucleated Red Blood Cells % 0 %; Platelet Count 352 10^3/cmm (157-399); Red Blood Count 4.48 10^6/uL (3.85-5.65); Red Cell Distribution Width 14.7 % (12.1-15.1); White Blood Count 15.13 10^3/uL (3.29-11.43)
[2024-06-07 13:01] LABS: Erythrocyte Sedimentation Rate 39 mm/hr (0-15)
[2024-06-07 13:10] LABS: Alanine Aminotransferase 15 U/L (0-33); Albumin Level 4.3 g/dL (3.5-5.2); Alkaline Phosphatase 122 U/L (35-105); Anion Gap 14.7 (5-19); Aspartate Amino Transferase 13 U/L (0-32); Blood Urea Nitrogen 35 mg/dL (8-23); C Reactive Protein 6.5 mg/L (0.0-4.9); Calcium 9.6 mg/dL (8.5-10.5); Carbon Dioxide 25 mmol/L (22-29); Chloride 102 mmol/L (98-107); Creatinine Clr Calc Pharmacy 82.5548; Globulin 3.4 g/dL (1.3-4.6); Glomerular Filtration Rate 55.6 mL/min (90-130); Glucose 89 mg/dL (65-115); Lactate Dehydrogenase 166 U/L (135-214); Osmolality Calculated 291 mOsm/kg (285-295); Potassium 4.7 mmol/L (3.5-5.1); Sodium 137 mmol/L (136-145); Total Bilirubin 0.3 mg/dL (0.15-1.2); Total Protein 7.7 g/dL (6.6-8.7)
[2024-06-09 22:39] LABS: P190 BCR ALB1 NOT DETECTED; P190 BCR ALB1 Yes Test Yes; P210 BCR ALB1 NOT DETECTED; P210 BCR ALB1 Yes Test Yes; Prior Results NG; Source serum
== END 2024-06-30 23:59 | disposition home or self-care (01) ==
PROVIDERS: Nurse Practitioner; PCP Family Medicine; Visit Provider Internal Medicine Medical Oncology
DX: D72.829 Elevated white blood cell count, unspecified (principal); N18.30 Chronic kidney disease, stage 3 unspecified; M19.90 Unspecified osteoarthritis, unspecified site; Z79.899 Other long term (current) drug therapy
CPT/HCPCS: 36415; 80053; 81206; 81207; 83615; 85025; 85651; 86140; 99213

== ENCOUNTER 2024-07-01 05:00 | Outpatient (RCR) | payer MEDICARE, OTHER, SELFPAY | END 2024-07-31 23:55 | disposition home or self-care (01) | LOC: TPT 05:00 | PROVIDERS: PCP Family Medicine; Visit Provider Nurse Practitioner | DX: M17.12 Unilateral primary osteoarthritis, left knee (principal) | CPT/HCPCS: 97110; 97161 ==

== ENCOUNTER → 2024-07-05 08:42 | Outpatient (BNVA) | payer MEDICARE, OTHER, SELFPAY | PROVIDERS: PCP Family Medicine; Visit Provider Nurse Practitioner | DX: M17.12 Unilateral primary osteoarthritis, left knee (principal); G89.29 Other chronic pain | CPT/HCPCS: 73560; 73565 ==

== ENCOUNTER 2024-07-05 10:44 | Outpatient (CLI) | payer MEDICARE, OTHER, SELFPAY | END 2024-07-05 10:45 | disposition home or self-care (01) | LOC: SPT 10:45 | PROVIDERS: PCP Family Medicine; Visit Provider Nurse Practitioner | DX: Z46.89 Encounter for fitting and adjustment of other specified devices (principal); M17.12 Unilateral primary osteoarthritis, left knee | CPT/HCPCS: 97760; L1851 ==

== ENCOUNTER → 2024-07-30 13:12 | Outpatient (BNVA) | payer MEDICARE, OTHER, SELFPAY | PROVIDERS: PCP Family Medicine; Visit Provider Nurse Practitioner | DX: M17.12 Unilateral primary osteoarthritis, left knee (principal); G89.29 Other chronic pain; E66.01 Morbid (severe) obesity due to excess calories | CPT/HCPCS: 20610; 99213; J7318 ==

== ENCOUNTER 2024-08-01 05:00 | Outpatient (RCR) | payer MEDICARE, OTHER, SELFPAY | END 2024-08-30 23:59 | disposition home or self-care (01) | LOC: TPT 05:00 | PROVIDERS: PCP Family Medicine; Visit Provider Nurse Practitioner | DX: M17.12 Unilateral primary osteoarthritis, left knee (principal) | CPT/HCPCS: 97110 ==

== ENCOUNTER 2024-08-31 05:00 | Outpatient (RCR) | payer MEDICARE, OTHER, SELFPAY | END 2024-09-30 23:59 | disposition home or self-care (01) | LOC: TPT 05:00 | PROVIDERS: PCP Family Medicine; Visit Provider Nurse Practitioner | DX: M17.12 Unilateral primary osteoarthritis, left knee (principal) | CPT/HCPCS: 97110 ==

== ENCOUNTER 2024-10-01 05:00 | Outpatient (RCR) | payer MEDICARE, OTHER, SELFPAY | END 2024-10-31 23:59 | disposition home or self-care (01) | LOC: TPT 05:00 | PROVIDERS: PCP Family Medicine; Visit Provider Nurse Practitioner | DX: M17.12 Unilateral primary osteoarthritis, left knee (principal) | CPT/HCPCS: 97110 ==

== ENCOUNTER 2024-11-01 05:00 | Outpatient (RCR) | payer MEDICARE, OTHER, SELFPAY | END 2024-11-30 23:59 | disposition home or self-care (01) | LOC: TPT 05:00 | PROVIDERS: PCP Family Medicine; Visit Provider Nurse Practitioner | DX: M17.12 Unilateral primary osteoarthritis, left knee (principal) | CPT/HCPCS: 97110 ==

== ENCOUNTER → 2024-11-05 12:35 | Outpatient (BNVA) | payer MEDICARE, OTHER, SELFPAY | PROVIDERS: PCP Family Medicine; Visit Provider Nurse Practitioner | DX: M17.12 Unilateral primary osteoarthritis, left knee (principal); G89.29 Other chronic pain; E66.01 Morbid (severe) obesity due to excess calories | CPT/HCPCS: 20610; 99213; J1100; J2795; J3301; J9999 ==

== ENCOUNTER → 2024-12-06 11:06 | Outpatient (BNVA) | payer MEDICARE, OTHER, SELFPAY | DX: E78.5 Hyperlipidemia, unspecified (principal) | CPT/HCPCS: 80053; 80061; 85025 ==

== ENCOUNTER 2024-12-15 12:26 | Outpatient (CLI) | payer MEDICARE, OTHER, SELFPAY ==
--- NOTE | 2024-12-15 12:40 | MM_ITS ---
WS: [id number] BILATERAL 3D TOMOSYNTHESIS DIGITAL SCREENING MAMMOGRAM WITH CAD CLINICAL INFORMATION: screening HISTORY: Screening mammogram. No current complaints. COMPARISON: 2019 TECHNIQUE: Bilateral CC and MLO views. FINDINGS: Fatty-replaced breasts bilaterally. No suspicious focal mass, asymmetry, calcifications, or architectural distortion. No evidence of malignancy. Incidental punctate and lucent centered calcifications. Fat necrosis anterior RIGHT breast. MM/MM scr tomosynthesis [id number] IMPRESSION: DENSITY: The breasts are almost entirely fatty. BI-RADS: 2 - Benign. FOLLOW UP: 1 Year Follow-up Recommend return to annual screening mammography.
== END 2024-12-15 12:27 | disposition home or self-care (01) ==
DX: Z12.31 Encounter for screening mammogram for malignant neoplasm of breast (principal); R92.313 Mammographic fatty tissue density, bilateral breasts; R92.1 Mammographic calcification found on diagnostic imaging of breast; N64.1 Fat necrosis of breast
CPT/HCPCS: 77063; 77067

== ENCOUNTER 2024-12-30 16:51 | Outpatient (RCR) | payer MEDICARE, OTHER, SELFPAY | END 2024-12-31 23:59 | disposition home or self-care (01) | LOC: TPT 16:51 | PROVIDERS: PCP Family Medicine; Visit Provider Nurse Practitioner | DX: M17.12 Unilateral primary osteoarthritis, left knee (principal) | CPT/HCPCS: 97110 ==

== ENCOUNTER 2025-01-13 15:20 | Outpatient (RCR) | payer MEDICARE, OTHER, SELFPAY | END 2025-01-30 23:59 | disposition home or self-care (01) | LOC: TPT 15:20 | PROVIDERS: Visit Provider Nurse Practitioner | DX: M17.12 Unilateral primary osteoarthritis, left knee (principal) | CPT/HCPCS: 97110 ==

== ENCOUNTER 2025-02-10 15:16 | Outpatient (RCR) | payer MEDICARE, OTHER, SELFPAY | END 2025-03-02 23:59 | disposition home or self-care (01) | LOC: TPT 15:16 | PROVIDERS: Visit Provider Nurse Practitioner | DX: M17.12 Unilateral primary osteoarthritis, left knee (principal) | CPT/HCPCS: 97110 ==

== ENCOUNTER → 2025-02-11 12:22 | Outpatient (BNVA) | payer MEDICARE, OTHER, SELFPAY | PROVIDERS: Visit Provider Nurse Practitioner | DX: M17.12 Unilateral primary osteoarthritis, left knee (principal) | CPT/HCPCS: 20610; J1100; J2795; J3301; J9999 ==